=== PATIENT | male | born 1950 | race Caucasian/White ===

== ENCOUNTER 2016-12-19 07:44 | Outpatient (CLI) | payer MEDICARE | END 2016-12-19 07:45 | disposition home or self-care (01) | DX: E78.5 Hyperlipidemia, unspecified (principal); I10 Essential (primary) hypertension; D53.9 Nutritional anemia, unspecified ==

== ENCOUNTER 2017-05-29 09:04 | Outpatient (CLI) | payer MEDICARE, MEDICAID ==
[2017-05-29 14:19] LABS: HEMOGLOBIN A1C 0.6 g/dL
[2017-05-29 14:24] LABS: CALCIUM 9.2 mg/dL (8.5-10.3); CREATININE 0.8 mg/dL (0.6-1.2); POTASSIUM 4.4 mmol/L (3.5-5.0)
== END 2017-05-29 09:05 | disposition home or self-care (01) ==
LOC: LAB.N 09:04
PROVIDERS: ATTEND Family Medicine
DX: R73.01 Impaired fasting glucose (principal)
CPT/HCPCS: 36415; 80048; 83036

== ENCOUNTER 2017-12-28 08:00 | Outpatient (CLI) | payer MEDICARE, MEDICAID ==
[2017-12-28 12:30] LABS: BASOPHILS # (AUTO) 0.1 10^3/uL (0.0-0.1); BASOPHILS % (AUTO) 0.7 %; EOSINOPHILS # (AUTO) 0.4 10^3/uL (0.0-0.7); EOSINOPHILS % (AUTO) 4.1 %; HGB - HEMOGLOBIN 16.4 g/dL (14.0-18.0); LYMPHOCYTES # (AUTO) 2.7 10^3/uL (1.5-3.5); LYMPHOCYTES % (AUTO) 30.1 %; MEAN CORPUSCULAR HEMOGLOBIN 35.2 pg (27.0-31.0); MEAN CORPUSCULAR HGB CONC 34.8 g/dL (32.0-36.0); MEAN CORPUSCULAR VOLUME 101.1 fL (80.0-94.0); MEAN PLATELET VOLUME 10.2 fL (7.4-11.4); NEUTROPHILS # (AUTO) 4.9 10^3/uL (1.5-6.6); NEUTROPHILS % (AUTO) 54.1 %; PLT - PLATELET COUNT 203 10^3/uL (130-450); RED BLOOD COUNT 4.67 10^6/uL (4.70-6.10); RED CELL DISTRIBUTION WIDTH 12.9 % (12.0-15.0); WHITE BLOOD COUNT 9.1 x10^3/uL (4.8-10.8)
[2017-12-28 12:41] LABS: ALBUMIN 4.1 g/dL (3.2-5.5); ALBUMIN/GLOBULIN RATIO 1.2 (1.0-2.2); ALKALINE PHOSPHATASE 56 IU/L (42-121); ALT ALANINE AMINOTRANSFERASE 29 IU/L (10-60); AST ASPARTATE AMINOTRANSFERASE 33 IU/L (10-42); BILIRUBIN,TOTAL 1.5 mg/dL (0.2-1.0); BUN - BLOOD UREA NITROGEN 13 mg/dL (6-20); CARBON DIOXIDE - CO2 27 mmol/L (21-32); CHLORIDE 100 mmol/L (101-111); CHOL/HDL RATIO 6.7 (<5.0); CHOLESTEROL 175 mg/dL; GFR - MDRD 74 (>89); GLUCOSE 109 mg/dL (70-100); HDL CHOLESTEROL 26 mg/dL; LDL CHOLESTEROL,CALCULATED 96 mg/dL; LDL/HDL RATIO 3.7 (<3.6); SODIUM 136 mmol/L (135-145); TOTAL PROTEIN 7.5 g/dL (6.7-8.2); VLDL CHOLESTEROL 53 mg/dL
[2017-12-28 12:47] LABS: HB2 TOTAL 18.1 g/dL; HEMOGLOBIN A1C 0.68 g/dL; HEMOGLOBIN A1C % 5.6 % (4.6-6.2)
== END 2017-12-28 08:01 | disposition home or self-care (01) ==
LOC: LAB.N 08:00
PROVIDERS: ATTEND Family Medicine
DX: R73.01 Impaired fasting glucose (principal); E78.5 Hyperlipidemia, unspecified; I10 Essential (primary) hypertension
CPT/HCPCS: 36415; 80053; 80061; 83036; 83721; 85025

== ENCOUNTER 2018-07-16 10:42 | Outpatient (CLI) | payer MEDICARE, MEDICAID ==
[2018-07-16 19:25] LABS: CALCIUM 9.6 mg/dL (8.5-10.3)
[2018-07-16 19:50] LABS: HB2 TOTAL 17.5 g/dL; HEMOGLOBIN A1C 0.6 g/dL; HEMOGLOBIN A1C % 5.3 % (4.6-6.2)
== END 2018-07-16 10:43 | disposition home or self-care (01) ==
LOC: LAB.N 10:42
PROVIDERS: ATTEND Family Medicine
DX: R73.9 Hyperglycemia, unspecified (principal); E55.9 Vitamin D deficiency, unspecified; I10 Essential (primary) hypertension
CPT/HCPCS: 36415; 80048; 82306; 83036

== ENCOUNTER 2018-10-14 14:39 | Outpatient (CLI) | payer MEDICARE, MEDICAID | END 2018-10-14 14:40 | disposition EMS.NT | LOC: EMS 14:39 | PROVIDERS: ATTEND Surgery | DX: R10.30 Lower abdominal pain, unspecified (principal); V49.50XA Passenger injured in collision with unspecified motor vehicles in traffic accident, initial encounter; Y92.413 State road as the place of occurrence of the external cause ==

== ENCOUNTER 2018-10-27 16:41 | Emergency (ER) | payer OTHER, MEDICARE, MEDICAID ==
[2018-10-27] MEDS ORDERED: SODIUM CHLORIDE 0.9% 1,000 ML IV ONE (17:06)
[2018-10-27] MEDS ORDERED: fentaNYL 100 MCG/2 ML VIAL IVP STA (17:06)
[2018-10-27] MEDS ORDERED: ONDANSETRON 4 MG/2 ML VIAL IVP STA (17:06)
[2018-10-27] MEDS ORDERED: IOVERSOL 320 100 ML VIAL IVP ONE ×2 (17:25→20:25)
[2018-10-27 17:27] LABS: BASOPHILS # (AUTO) 0.1 10^3/uL (0.0-0.1); EOSINOPHILS # (AUTO) 0.3 10^3/uL (0.0-0.7); EOSINOPHILS % (AUTO) 2.8 %; HGB - HEMOGLOBIN 16.1 g/dL (14.0-18.0); LYMPHOCYTES # (AUTO) 2.5 10^3/uL (1.5-3.5); LYMPHOCYTES % (AUTO) 21.5 %; MEAN CORPUSCULAR HEMOGLOBIN 35.1 pg (27.0-31.0); MEAN CORPUSCULAR HGB CONC 33.7 g/dL (32.0-36.0); MEAN PLATELET VOLUME 9.3 fL (7.4-11.4); MONOCYTES # (AUTO) 1.2 10^3/uL (0.0-1.0); MONOCYTES % (AUTO) 10.5 %; NEUTROPHILS # (AUTO) 7.5 10^3/uL (1.5-6.6); NEUTROPHILS % (AUTO) 64.2 %; PLT - PLATELET COUNT 234 10^3/uL (130-450); RED BLOOD COUNT 4.59 10^6/uL (4.70-6.10); RED CELL DISTRIBUTION WIDTH 12.6 % (12.0-15.0); WHITE BLOOD COUNT 11.7 x10^3/uL (4.8-10.8)
[2018-10-27 17:38] LABS: INR 1.1 (0.8-1.2); PT - PROTHROMBIN TIME 12.9 secs (9.9-12.6)
[2018-10-27 17:38] LABS: BILIRUBIN,URINE NEGATIVE (NEGATIVE); GLUCOSE, URINE (UA) NEGATIVE (NEGATIVE); KETONES,URINE (UA) TRACE mg/dL (NEGATIVE); LEUKOCYTE ESTERASE, URINE NEGATIVE (NEGATIVE); NITRITE,URINE NEGATIVE (NEGATIVE); OCCULT BLOOD,URINE NEGATIVE (NEGATIVE); PROTEIN,URINE 30 mg/dL (NEGATIVE); UROBILINOGEN,URINE 1 (NORMAL) E.U./dL (NORMAL)
[2018-10-27 17:43] LABS: CLARITY,URINE CLEAR (CLEAR)
[2018-10-27 17:49] LABS: ALBUMIN/GLOBULIN RATIO 1.2 (1.0-2.2); BILIRUBIN,TOTAL 0.9 mg/dL (0.2-1.0); CALCIUM 9.2 mg/dL (8.5-10.3); CREATININE 0.9 mg/dL (0.6-1.2); TOTAL PROTEIN 7.4 g/dL (6.7-8.2)
[2018-10-27 18:02] LABS: AMORPHOUS SEDIMENT,UR Rare /LPF; BACTERIA,URINE None Seen /HPF (None Seen); RBC,URINE None Seen /HPF (0-5); SQUAMOUS EPITHELIAL CELL,UR NONE SEEN (<= Few)
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
--- NOTE | 2018-10-27 19:27 | CT Report ---
Reason: back pain Procedure Date: 10/27/2018 Accession Number: [id number] / [id number] Procedure: CT - Thoracic Spine W/O CPT Code: FULL RESULT: EXAM: CT THORACIC SPINE WITHOUT CONTRAST EXAM DATE: 10/27/2018 06:58 PM. CLINICAL HISTORY: Back pain. COMPARISONS: None. TECHNIQUE: Axial, coronal, and sagittal reconstructions of the thoracic spine from helical trauma data set. In accordance with CT protocol optimization, one or more of the following dose reduction techniques were utilized for this exam: automated exposure control, adjustment of mA and/or KV based on patient size, or use of iterative reconstructive technique. FINDINGS: Alignment: No scoliosis or spondylolisthesis. Bones: No fracture or bone lesion. Disk Levels/Facets: Disk height appears preserved. Facet joints appear normal in alignment. No bony central spinal canal stenosis. No paravertebral hematoma. Musculature: Normal. No fatty atrophy. Other: The visualized lungs, mediastinum, and abdominal cavity are unremarkable. IMPRESSION: No fracture or subluxation of thoracic spine. RADIA
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
--- NOTE | 2018-10-27 19:32 | CT Report ---
Reason: back pain Procedure Date: 10/27/2018 Accession Number: [id number] / [id number] Procedure: CT - Lumbar Spine W/O CPT Code: FULL RESULT: EXAM: CT LUMBAR SPINE WITHOUT CONTRAST EXAM DATE: 10/27/2018 06:57 PM. CLINICAL HISTORY: Back pain. COMPARISONS: None. TECHNIQUE: Axial, coronal, and sagittal reconstructions of lumbar spine from helical trauma data set.. In accordance with CT protocol optimization, one or more of the following dose reduction techniques were utilized for this exam: automated exposure control, adjustment of mA and/or KV based on patient size, or use of iterative reconstructive technique. FINDINGS: Alignment: No scoliosis or spondylolisthesis. Bones: Five [id number] lumbar vertebral bodies are present. No acute fracture is demonstrated. There is bilateral anterior ankylosis of the sacroiliac joints. Disk Levels/Facets: There is mild disk height loss at all levels of the lumbar spine. There is degenerative disease with intradiskal gas at L2-L3, L3-L4, and L4-L5. Musculature: Normal. No fatty atrophy. Other: There are vascular calcifications without abdominal aortic aneurysm. IMPRESSION: Degenerative disk disease without fracture or subluxation. RADIA
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
[2018-10-27 21:05] VITALS: BP 141/67
== END 2018-10-27 21:05 | disposition home or self-care (01) ==
LOC: ED 16:41
DX: S29.8XXA Other specified injuries of thorax, initial encounter (principal); S20.211A Contusion of right front wall of thorax, initial encounter; R10.84 Generalized abdominal pain; S30.1XXA Contusion of abdominal wall, initial encounter; M25.561 Pain in right knee; S29.9XXA Unspecified injury of thorax, initial encounter; M54.9 Dorsalgia, unspecified; V89.2XXA Person injured in unspecified motor-vehicle accident, traffic, initial encounter; Y92.410 Unspecified street and highway as the place of occurrence of the external cause; I10 Essential (primary) hypertension
CPT/HCPCS: 36415; 71260; 72128; 72131; 73562; 74177; 80053; 81001; 82553; 83690; 84484; 85025; 85610; 93005; 96361; 96374; 99284; Q9967; 81003; 87086

== ENCOUNTER 2021-02-25 | Outpatient (CLI) | payer MEDICARE | END 2021-02-25 18:18 | disposition critical access hospital (66) | DX: M54.5 Low back pain (principal) | CPT/HCPCS: A0425; A0429 ==

== ENCOUNTER 2021-02-25 18:38 | Emergency (ER) | payer MEDICAID, MEDICARE ==
[2021-02-25] MEDS ORDERED: MORPHINE 2 MG/ML CARPUJECT IVP STA ×2 (18:54→22:39)
[2021-02-25] MEDS ORDERED: SODIUM CHLORIDE 0.9% 1,000 ML IV STA ×3 (18:54→22:39)
[2021-02-25 19:04] LABS: BASOPHILS # (AUTO) 0.1 10^3/uL (0.0-0.1); BASOPHILS % (AUTO) 0.8 %; EOSINOPHILS # (AUTO) 0.3 10^3/uL (0.0-0.7); EOSINOPHILS % (AUTO) 3.3 %; HCT - HEMATOCRIT 41.4 % (42.0-52.0); HGB - HEMOGLOBIN 14.1 g/dL (14.0-18.0); LYMPHOCYTES # (AUTO) 1.8 10^3/uL (1.5-3.5); LYMPHOCYTES % (AUTO) 17.4 %; MEAN CORPUSCULAR HEMOGLOBIN 34.9 pg (27.0-31.0); MEAN CORPUSCULAR HGB CONC 34.1 g/dL (32.0-36.0); MEAN CORPUSCULAR VOLUME 102.5 fL (80.0-94.0); MEAN PLATELET VOLUME 10.6 fL (7.4-11.4); MONOCYTES # (AUTO) 1.1 10^3/uL (0.0-1.0); NEUTROPHILS # (AUTO) 6.7 10^3/uL (1.5-6.6); NEUTROPHILS % (AUTO) 66.6 %; PLT - PLATELET COUNT 327 10^3/uL (130-450); RED BLOOD COUNT 4.04 10^6/uL (4.70-6.10); RED CELL DISTRIBUTION WIDTH 12.8 % (12.0-15.0); WHITE BLOOD COUNT 10.1 x10^3/uL (4.8-10.8)
--- NOTE | 2021-02-25 19:07 | ED Physician Documentation ---
History of Present Illness - Stated complaint Stated Complaint: GLF - Chief complaint Chief Complaint: Back Pain - History obtained from History obtained from: Patient, EMS - History of Present Illness Timing: How many days ago (8) Pain level max: 8 Pain level now: 1 - Additonal information Additional information: Patient is a 70-year-old male who lives at home. He states that 8 days ago he stumbled, fell backwards missing a chair and landing on his right buttocks. He states that since that time he has had low back pain, right knee pain, right hip pain, right rib pain. He has been unable to get up off of the floor. His girlfriend has been taking care of him. She has been feeding him on the floor, he has been urinating into a bottle and defecating into a cup. Finally they called EMS to bring him in to be evaluated. Patient states his pain is a 1 out of 10 if he is not moving. Increases to a 10 out of 10 when trying to stand and walk. No loss of bowel or bladder control. Occasionally the pain radiates down the bilateral lower extremities. Has not taken anything for pain. Review of Systems Ten Systems: 10 systems reviewed and negative Constitutional: denies: Fever, Chills Eyes: denies: Decreased vision Ears: denies: Ear pain, Drainage/discharge Nose: denies: Rhinorrhea / runny nose, Congestion Throat: denies: Sore throat Cardiac: denies: Chest pain / pressure, Palpitations Respiratory: denies: Dyspnea, Cough GI: denies: Abdominal Pain, Nausea, Vomiting, Diarrhea Skin: denies: Rash Musculoskeletal: denies: Neck pain Neurologic: denies: Headache PD PAST MEDICAL HISTORY - Past Medical History Cardiovascular: Hypertension Psych: Depression, Anxiety - Past Surgical History Past Surgical History: Yes Ortho: Arthroscopic surgery - Present Medications Home Medications: Ambulatory Orders Medication Instructions Recorded Confirmed Citalopram [CeleXA] 20 mg PO DAILY 01/12/14 01/12/14 Losartan [Cozaar] 25 mg PO DAILY 01/12/14 01/12/14 Propranolol [Inderal] 20 mg PO BID 01/12/14 01/12/14 busPIRone [Buspar] 10 mg PO BID 01/12/14 01/12/14 - Allergies Allergies/Adverse Reactions: Allergies Allergy/AdvReac Type Severity Reaction Status Date / Time No Known Drug Allergies Allergy Verified 10/27/18 17:20 - Social History Does the pt smoke?: No Smoking Status: Never smoker Does the pt drink ETOH?: Yes Does the pt have substance abuse?: No - Immunizations Immunizations are current?: Yes - POLST Patient has POLST: No PD ED PE NORMAL - Vitals Vital signs reviewed: Yes - General General: Alert and oriented X 3, No acute distress, Well developed/nourished - HEENT HEENT: PERRL, Other (dry lips) - Neck Neck: Supple, no meningeal sign - Cardiac Cardiac: RRR, Strong equal pulses - Respiratory Respiratory: No respiratory distress, Clear bilaterally - Abdomen Abdomen: Soft, Non tender, Non distended - Back Back: No spinal TTP (No midline tenderness over the cervical, thoracic or lumbar spines.) - Derm Derm: Warm and dry, Other (Ecchymosis to the right ribs, right knee and right hip.) - Extremities Extremities: Other (Tender to palpation over the entirety of the right leg. No ecchymosis. No swelling. Normal examination of the other 4 extremities. no joint effusion, FROM of all joints with ligaments intact. Patient is also tender to palpation over the right lower ribs. No crepitus. Mild bruising ) - Neuro Neuro: Alert and oriented X 3, director of business operations 2-12 intact, No motor deficit, No sensory deficit, Normal speech, Other (Normal bilateral lower extremity patellar and ankle jerk reflexes. Normal great toe extension bilaterally. no saddle anesthesia) - Psych Psych: Normal mood, Normal affect Results - Vitals Vitals: Vital Signs - 24 hr 02/25/21 02/25/21 02/25/21 18:38 18:55 19:57 Temperature 35.8 C L Heart Rate 62 98 66 Respiratory 18 16 18 Rate Blood Pressure 114/57 L 100/87 H 132/87 H O2 Saturation 99 98 94 02/25/21 21:05 Temperature Heart Rate 68 Respiratory 18 Rate Blood Pressure 132/62 H O2 Saturation 95 Oxygen O2 Source Room air - Labs Labs: Laboratory Tests 02/25/21 02/25/21 02/25/21 19:00 19:00 21:20 WBC 10.1 RBC 4.04 L Hgb 14.1 Hct 41.4 L MCV 102.5 H MCH 34.9 H MCHC 34.1 RDW 12.8 Plt Count 327 MPV 10.6 Neut # (Auto) 6.7 H Lymph # (Auto) 1.8 [place] # (Auto) 1.1 H Eos # (Auto) 0.3 Baso # (Auto) 0.1 Absolute Nucleated RBC 0.00 Nucleated RBC % 0.0 Sodium 131 L Potassium 4.7 Chloride 95 L Carbon Dioxide 21 Anion Gap 15.0 H BUN 26 H Creatinine 1.3 H Estimated GFR (MDRD) 54 L Glucose 92 Calcium 9.4 Total Bilirubin 1.5 H AST 60 H ALT 55 Alkaline Phosphatase 64 Total Creatine Kinase 253 Total Protein 7.7 Albumin 4.1 Globulin 3.6 Albumin/Globulin Ratio 1.1 Urine Color YELLOW Urine Clarity CLEAR Urine pH 6.0 Ur Specific [place] 1.010 Urine Protein NEGATIVE Urine Glucose (UA) NEGATIVE Urine Ketones TRACE Urine Occult Blood NEGATIVE Urine Nitrite NEGATIVE Urine Bilirubin NEGATIVE Urine Urobilinogen 1 (NORMAL) Ur Leukocyte Esterase NEGATIVE Ur Microscopic Review NOT INDICATED Urine Culture Comments NOT INDICATED - Rads (name of study) CT head Radiology: Prelim report reviewed, EMP read contemporaneously, See rad report (No acute abnormality) CT cspine Radiology: Prelim report reviewed, EMP read contemporaneously, See rad report (No acute abnormality) ct chest Radiology: Prelim report reviewed, EMP read contemporaneously, See rad report (No acute abnormality) CT abd/pelvis Radiology: Prelim report reviewed, EMP read contemporaneously, See rad report (No acute abnormality) R femur xray Radiology: Prelim report reviewed, EMP read contemporaneously, See rad report (No acute abnormality) R tib fib xray Radiology: Prelim report reviewed, EMP read contemporaneously, See rad report PD MEDICAL DECISION MAKING - ED course Complexity details: reviewed results, re-evaluated patient, considered differential, d/w patient ED course: No acute findings on CT scan laboratory testing or x-rays. Patient is dehydrated and feels better after IV fluids. Pain well controlled, but patient feels too weak to walk even with a walker. No indication for admission at this time, we will observe him overnight and see how he progresses in the morning. May need a social work consult in the morning as well. If the patient is able to ambulate with a walker tonight I anticipate that he could be discharged home with pain medication. Patient signed out to the [facility] emergency department physician. This document was made in part using voice recognition software. While efforts are made to proofread this document, sound alike and grammatical errors may occur. Departure - Departure Clinical Impression: Fall Qualifiers: Encounter type: initial encounter Qualified Code(s): W19.XXXA - Unspecified fall, initial encounter Back pain Qualifiers: Back pain location: low back pain Chronicity: acute Back pain laterality: unspecified Sciatica presence: without sciatica Qualified Code(s): M54.5 - Low back pain Condition: Good
[2021-02-25 19:16] LABS: ALBUMIN 4.1 g/dL (3.2-5.5); ALBUMIN/GLOBULIN RATIO 1.1 (1.0-2.2); BILIRUBIN,TOTAL 1.5 mg/dL (0.2-1.0); CALCIUM 9.4 mg/dL (8.5-10.3); CREATININE 1.3 mg/dL (0.6-1.2); POTASSIUM 4.7 mmol/L (3.5-5.0); TOTAL PROTEIN 7.7 g/dL (6.7-8.2)
--- NOTE | 2021-02-25 19:56 | XRAY Report ---
PROCEDURE: Femur 2V RT INDICATIONS: fall, R leg pain TECHNIQUE: 5 views of the femur were acquired. COMPARISON: None. FINDINGS: Bones: No fractures or dislocations. Right hip and right knee joint osteoarthritic changes are seen . No evidence of avascular necrosis of femoral head. No suspicious bony lesions. Soft tissues: No suspicious soft tissue calcifications or masses. IMPRESSION: No acute right femoral fracture or dislocation. Right hip and right knee joint osteoarthritis. Reviewed by: Joel Hummel MD on 02/25/2021 7:55 PM PDT Approved by: Joel Hummel MD on 02/25/2021 7:55 PM PDT Station ID: [id number]
--- NOTE | 2021-02-25 19:57 | XRAY Report ---
PROCEDURE: Tib/Fib RT INDICATIONS: fall, R leg pain TECHNIQUE: 2 views of the tibia and fibula were acquired. COMPARISON: Right knee radiograph dated 10/27/2018 FINDINGS: Bones: No fractures or dislocations. No suspicious bony lesions. Soft tissues: No suspicious soft tissue calcifications or masses. IMPRESSION: No acute right lower leg fracture or dislocation. Intact ankle mortise. Reviewed by: Joel Hummel MD on 02/25/2021 7:55 PM PDT Approved by: Joel Hummel MD on 02/25/2021 7:55 PM PDT Station ID: [id number]
[2021-02-25] MEDS ORDERED: IOPAMIDOL-300 100 ML VIAL ONE (20:05)
--- NOTE | 2021-02-25 21:08 | CT Report ---
PROCEDURE: HEAD WO INDICATIONS: fall, 8 days ago, on floor x8 day, headache TECHNIQUE: Noncontrast 4.5 mm thick angled axial sections acquired from the foramen magnum to the vertex. For r adiation dose reduction, the following was used: automated exposure control, adjustment of mA and/or kV according to patient size. COMPARISON: None FINDINGS: Image quality: Excellent. CSF spaces: Basal cisterns are patent. No extra-axial fluid collections. The ventricles are symmet luna in size and shape. Brain: No intracranial bleeds or masses. There is cerebral volume loss for age, with resultant vent ricular and sulcal prominence. There are periventricular and deep white matter chronic small vessel ischemic changes. There is intracranial internal carotid artery atherosclerosis. Skull and face: Calvarium and visualized facial bones appear intact, without suspicious lesions. Sinuses: Visualized sinuses and mastoids are clear. IMPRESSION: 1. No CT evidence of acute intracranial pathology. 2. No acute skull fracture. 3. Age-appropriate atrophy and mild white matter chronic small vessel ischemic changes. Reviewed by: Joel Hummel MD on 02/25/2021 9:06 PM PDT Approved by: Joel Hummel MD on 02/25/2021 9:06 PM PDT Station ID: [id number]
--- NOTE | 2021-02-25 21:09 | CT Report ---
PROCEDURE: CERVICAL SPINE WO INDICATIONS: fall, 8 days ago, neck pain TECHNIQUE: Noncontrast 3 mm thick sections acquired from the skull base to the T4 level. Sagittal and coronal r eformats were then constructed. For radiation dose reduction, the following was used: automated exp osure control, adjustment of mA and/or kV according to patient size. COMPARISON: None. FINDINGS: Image quality: Excellent. Bones: No fractures or dislocations. There is straightening of normal cervical lordosis. Degenerativ e endplate changes and decreased intervertebral disc space are noted at C4-5 through C6-7 levels. Vis ualized superior ribs are intact. Soft tissues: Prevertebral soft tissues are normal in thickness. No paravertebral hematomas. No ap ical pneumothoraces. IMPRESSION: No acute cervical spine fracture or dislocation. Degenerative disc disease in mid to lower cervical spine. Reviewed by: Joel Hummel MD on 02/25/2021 9:08 PM PDT Approved by: Joel Hummel MD on 02/25/2021 9:08 PM PDT Station ID: [id number]
--- NOTE | 2021-02-25 21:13 | CT Report ---
PROCEDURE: CHEST W INDICATIONS: fall, 8 days ago, R sided pain CONTRAST: IV CONTRAST: Isovue 300 ml: 100 PO CONTRAST: *NO PO CONTRAST TECHNIQUE: After the administration of intravenous contrast, 5 mm thick sections acquired from the pulmonary api erin to the posterior costophrenic angles. 7 mm thick coronal MIP reformats were acquired. For radia tion dose reduction, the following was used: automated exposure control, adjustment of mA and/or kV according to patient size. COMPARISON: CT of chest dated 10/27/2018. FINDINGS: Image quality: Excellent. Lungs and pleura: No acute air space opacities. Scattered scarring/atelectasis in periphery of bilat eral lung aden are seen. No evidence of pulmonary laceration. Chronic lateral herniation of right l ower lobe through posterior lateral right eighth and ninth rib interspace is again seen, unchanged fr om 2018 study. No pleural effusions or pneumothorax. Central and peripheral airways are patent and n ormal in caliber. Mediastinum: Heart size is normal. No pericardial effusion. No mediastinal or hilar adenopathy by size criteria. Thoracic aorta and central pulmonary arteries are normal in size. Mild to moderate at herosclerotic calcifications are noted in coronary vessels and thoracic aorta. Esophagus is normal in caliber. No hiatal hernia. Bones and chest wall: No suspicious bony lesions. No vertebral body compression fractures. Degenera tive disc disease throughout the thoracic spine is seen. No axillary or supraclavicular adenopathy by size criteria. Thyroid gland is within normal limits. Abdomen: Visualized upper abdominal solid organs appear normal. Upper abdominal bowel loops are nor mal in caliber. IMPRESSION: 1. No pulmonary laceration. No pleural effusion or pneumothorax. No focal infiltrate. Airway is paten t. 2. Chronic posterior lateral right lower lobe herniation through posterior lateral right eighth and n inth rib interspace unchanged from prior study. 3. No mediastinal hematoma. No lymphadenopathy. No pericardial effusion. Mild to moderate amount of a therosclerotic disease. 4. No gross acute rib fracture. No compression fracture or spondylolisthesis in thoracic spine. Reviewed by: Joel Hummel MD on 02/25/2021 9:12 PM PDT Approved by: Joel Hummel MD on 02/25/2021 9:12 PM PDT Station ID: [id number]
--- NOTE | 2021-02-25 21:16 | CT Report ---
PROCEDURE: Abdomen/Pelvis W INDICATIONS: fall, 8 days ago, R sided pain CONTRAST: IV CONTRAST: Isovue 300 ml: 100 PO CONTRAST: *NO PO CONTRAST TECHNIQUE: After the administration of IV contrast, 5 mm thick sections acquired from the diaphragms to the symp hysis. 5 mm thick coronal and sagittal reformats were acquired. For radiation dose reduction, the f ollowing was used: automated exposure control, adjustment of mA and/or kV according to patient size. COMPARISON: 10/27/2018. FINDINGS: Image quality: Excellent. ABDOMEN: Lung bases: Bibasilar scarring/atelectasis is seen. Heart size is enlarged. Solid organs: Liver and spleen are normal in size and enhancement. Hepatic steatosis is seen. Gallbl adder is within normal limits. Biliary system is non dilated. Pancreas enhances normally. No adren al nodules. Kidneys demonstrate normal size and enhancement, without hydronephrosis. Peritoneum and bowel: Bowel loops demonstrate normal wall thickness and caliber. No free fluid or a ir. Extensive sigmoid diverticulosis is seen, no CT evidence of acute diverticulitis. Nodes and vessels: No retroperitoneal or mesenteric adenopathy by size criteria. Aorta and inferior vena cava are normal in size. Miscellaneous: No ventral hernias. PELVIS: Genitourinary: Bladder wall thickness is normal. Miscellaneous: No inguinal hernias or adenopathy. Bones: No suspicious bony lesions. No vertebral body compression fractures. IMPRESSION: 1. No acute solid organ injury within abdomen or pelvis. No free fluid or free air. 2. Colonic diverticulosis without evidence of acute diverticulitis. 3. Hepatic steatosis. Reviewed by: Joel Hummel MD on 02/25/2021 9:14 PM PDT Approved by: Joel Hummel MD on 02/25/2021 9:14 PM PDT Station ID: [id number]
[2021-02-25] MEDS ORDERED: IOPAMIDOL-300 100 ML VIAL IVP ONE (21:30)
[2021-02-25 21:35] LABS: BILIRUBIN,URINE NEGATIVE (NEGATIVE); CLARITY,URINE CLEAR (CLEAR); GLUCOSE, URINE (UA) NEGATIVE (NEGATIVE); KETONES,URINE (UA) TRACE mg/dL (NEGATIVE); LEUKOCYTE ESTERASE, URINE NEGATIVE (NEGATIVE); NITRITE,URINE NEGATIVE (NEGATIVE); OCCULT BLOOD,URINE NEGATIVE (NEGATIVE); PROTEIN,URINE NEGATIVE (NEGATIVE); UROBILINOGEN,URINE 1 (NORMAL) E.U./dL (NORMAL)
[2021-02-25] MEDS ORDERED: oxyCODONE 5 MG TABLET PO STA (21:37)
[2021-02-26 17:03] VITALS: BP 146/43
--- OUTSIDE RECORDS SUMMARY | 2021-02-27 03:17 | EXTERNAL MEDICAL SUMMARY RPT | Continuity of Care Document ---
:1950 Demographics Phone Unavailable Preferred Language Unknown Marital Status Unknown Adventist Affiliation Unknown Race Unknown Ethnic Group Unknown Author Organization [facility] Address [address] [place] [address] Phone Social History date description facility [id number]
== END 2021-02-26 18:12 | disposition home or self-care (01) ==
LOC: EDBD → EDUNIT# → ED 18:38
DX: M54.5 Low back pain (principal); S80.01XA Contusion of right knee, initial encounter; S70.01XA Contusion of right hip, initial encounter; S20.211A Contusion of right front wall of thorax, initial encounter; W01.0XXA Fall on same level from slipping, tripping and stumbling without subsequent striking against object, initial encounter; Y92.009 Unspecified place in unspecified non-institutional (private) residence as the place of occurrence of the external cause; E86.0 Dehydration; R53.1 Weakness; I10 Essential (primary) hypertension; E66.01 Morbid (severe) obesity due to excess calories; Z68.35 Body mass index [BMI] 35.0-35.9, adult; M50.321 Other cervical disc degeneration at C4-C5 level; M17.11 Unilateral primary osteoarthritis, right knee; M16.11 Unilateral primary osteoarthritis, right hip
CPT/HCPCS: 36415; 70450; 71260; 72125; 73552; 73590; 74177; 80053; 81003; 82550; 85025; 96361; 96374; 96376; 99284; A9270; Q9967; 81001; 87086

== ENCOUNTER 2021-02-26 | Outpatient (CLI) | payer MEDICARE | END 2021-02-26 18:11 | disposition home or self-care (01) | CPT/HCPCS: A0425; A0428 ==

== ENCOUNTER 2021-05-16 10:46 | Outpatient (CLI) | payer MEDICARE ==
[2021-05-16 18:06] LABS: BASOPHILS # (AUTO) 0.1 10^3/uL (0.0-0.1); BASOPHILS % (AUTO) 0.6 %; EOSINOPHILS # (AUTO) 0.2 10^3/uL (0.0-0.7); HCT - HEMATOCRIT 40.8 % (42.0-52.0); HGB - HEMOGLOBIN 13.4 g/dL (14.0-18.0); LYMPHOCYTES # (AUTO) 1.9 10^3/uL (1.5-3.5); MEAN CORPUSCULAR HEMOGLOBIN 33.4 pg (27.0-31.0); MEAN CORPUSCULAR HGB CONC 32.8 g/dL (32.0-36.0); MEAN CORPUSCULAR VOLUME 101.7 fL (80.0-94.0); MEAN PLATELET VOLUME 11.3 fL (7.4-11.4); MONOCYTES # (AUTO) 0.8 10^3/uL (0.0-1.0); MONOCYTES % (AUTO) 8.4 %; NEUTROPHILS # (AUTO) 6.4 10^3/uL (1.5-6.6); NEUTROPHILS % (AUTO) 68.3 %; PLT - PLATELET COUNT 280 10^3/uL (130-450); RED BLOOD COUNT 4.01 10^6/uL (4.70-6.10); RED CELL DISTRIBUTION WIDTH 12.5 % (12.0-15.0); WHITE BLOOD COUNT 9.4 x10^3/uL (4.8-10.8)
[2021-05-16 18:29] LABS: % IRON SATURATION 51 % (20-50); ALBUMIN/GLOBULIN RATIO 1.1 (1.0-2.2); ALKALINE PHOSPHATASE 60 IU/L (42-121); ALT ALANINE AMINOTRANSFERASE 30 IU/L (10-60); AST ASPARTATE AMINOTRANSFERASE 31 IU/L (10-42); BILIRUBIN,TOTAL 1.4 mg/dL (0.2-1.0); BUN - BLOOD UREA NITROGEN 19 mg/dL (6-20); CALCIUM 9.6 mg/dL (8.5-10.3); CARBON DIOXIDE - CO2 26 mmol/L (21-32); CHLORIDE 94 mmol/L (101-111); CHOL/HDL RATIO 2.6 (<5.0); CHOLESTEROL 147 mg/dL; CREATININE 1.1 mg/dL (0.6-1.2); GFR - MDRD 66 (>89); GLUCOSE 108 mg/dL (70-100); HDL CHOLESTEROL 56 mg/dL; IRON 185 ug/dL (45-182); LDL CHOLESTEROL,CALCULATED 65 mg/dL; LDL/HDL RATIO 1.2 (<3.6); SODIUM 131 mmol/L (135-145); TOTAL IRON BINDING CAPACITY 363 ug/dL (250-450); TOTAL PROTEIN 7.5 g/dL (6.7-8.2); TRANSFERRIN 259 mg/dL (180-329); TRIGLYCERIDES 130 mg/dL; URIC ACID 6.3 mg/dL (2.6-7.2); VLDL CHOLESTEROL 26 mg/dL
[2021-05-16 18:40] LABS: FERRITIN 158.9 ng/mL (23.9-336.2)
[2021-05-16 21:13] LABS: ESTIMATED AVERAGE GLUCOSE 111 mg/dL (70-100); HEMOGLOBIN A1c% 5.5 % (4.27-6.07)
== END 2021-05-16 10:47 | disposition home or self-care (01) ==
LOC: LAB.N 10:46
PROVIDERS: ATTEND Family Medicine
DX: I10 Essential (primary) hypertension (principal); E78.5 Hyperlipidemia, unspecified; D53.9 Nutritional anemia, unspecified; R73.01 Impaired fasting glucose; M10.9 Gout, unspecified
CPT/HCPCS: 36415; 80053; 80061; 82607; 82728; 83036; 83540; 83721; 84466; 84550; 85025

== ENCOUNTER 2022-01-10 11:01 | Day surgery (SDC) | payer MEDICARE ==
[~2022-01-10 11:01] MED LIST: PROPOFOL 500 MG/50 ML 500 MG/50 ML VIAL ONE
[2022-01-10] MEDS ORDERED: LACTATED RINGERS 1,000 ML IV ONE ×2 (11:10→12:53)
--- NOTE | 2022-01-10 11:54 | ANESTHESIA ---
Pre-Anesthesia VS, & Labs - Diagnosis screening colonoscopy - Procedure colonoscopy Vital Signs: Temp Pulse Resp BP Pulse Ox 36 C L 55 L 16 132/75 H 98 01/10/22 11:21 01/10/22 11:21 01/10/22 11:21 01/10/22 11:21 01/10/22 11:21 Height: 5 ft 10 in Weight (kg): 129 kg Body Mass Index: 40.8 BMI Classification: Morbidly Obese - NPO >8 hours Home Medications and Allergies Home Medications: Ambulatory Orders Atorvastatin Calcium 40 mg PO DAILY 01/10/22 Clopidogrel [Plavix] 75 mg PO DAILY 01/10/22 Metoprolol Succinate [Toprol Xl] 25 mg PO ONCE 01/10/22 Oxybutynin [Ditropan] 5 mg PO BID 01/10/22 allopurinoL [Allopurinol] 300 mg PO DAILY 01/10/22 Citalopram [CeleXA] 40 mg PO DAILY 01/12/14 Losartan [Cozaar] 50 mg PO DAILY 01/12/14 busPIRone [Buspar] 7.5 mg PO BID 01/12/14 Atorvastatin Calcium 40 mg PO DAILY 01/10/22 Clopidogrel [Plavix] 75 mg PO DAILY 01/10/22 Metoprolol Succinate [Toprol Xl] 25 mg PO ONCE 01/10/22 Oxybutynin [Ditropan] 5 mg PO BID 01/10/22 allopurinoL [Allopurinol] 300 mg PO DAILY 01/10/22 Allergies/Adverse Reactions: Allergies Allergy/AdvReac Type Severity Reaction Status Date / Time No Known Drug Allergies Allergy Verified 10/27/18 17:20 Anes History & Medical History - Anesthetic History Anesthesia Complications: reports: No previous complications - Medical History Cardiovascular: reports: Hypertension, High cholesterol Pulmonary: reports: Other (chest trauma, rib fractures 5 yrs ago, occasional SOB) Gastrointestinal: reports: None Urinary: reports: Benign prostate hypertrophy Neuro: reports: CVA Musculoskeletal: reports: Gout, Chronic back pain Endocrine/Autoimmune: reports: None Skin: reports: None Smoking Status: Never smoker History of Cancer?: No - Surgical History Cardiothoracic: reports: Vascular surgery Orthopedic: reports: Arthroscopic surgery Exam General: Alert, Oriented x3 Dental: WNL Mallampati classification: II Respiratory: Lungs clear Cardiovascular: Regular rate Plan Anesthesia Type: Total IV Consent for Procedure(s) Verified and Reviewed: Yes Code Status: Attempt Resuscitation ASA classification: 3-Severe systemic disease Is this case an emergency?: No
[2022-01-10] MEDS ORDERED: PROPOFOL 200 MG/20 ML VIAL IVP ONE (12:52)
--- NOTE | 2022-01-10 13:41 | ANESTHESIA POST OP EVALUATION ---
Anesthesia Post Eval - Post Anesthesia Eval Vitals: Last Vital Signs Temp 36.6 C 01/10/22 12:50 Pulse 63 01/10/22 13:02 Resp 22 01/10/22 13:02 BP 122/49 L 01/10/22 13:02 Pulse Ox 95 01/10/22 13:02 CV Function Including HR & BP: Stable Pain Control: Satisfactory Nausea & Vomiting: Negative Mental Status: Baseline Respiratory Status: Airway Patent Hydration Status: Satisfactory Anesthesia Complications: None
[2022-01-10 13:47] VITALS: BP 125/74
== END 2022-01-10 11:02 | disposition home or self-care (01) ==
LOC: SDS 11:01
PROVIDERS: ATTEND Surgery
DX: Z12.11 Encounter for screening for malignant neoplasm of colon (principal); K57.30 Diverticulosis of large intestine without perforation or abscess without bleeding; F17.290 Nicotine dependence, other tobacco product, uncomplicated; I10 Essential (primary) hypertension; E66.01 Morbid (severe) obesity due to excess calories; Z68.41 Body mass index [BMI] 40.0-44.9, adult; Z79.02 Long term (current) use of antithrombotics/antiplatelets; Z79.52 Long term (current) use of systemic steroids; Z79.899 Other long term (current) drug therapy
CPT/HCPCS: G0121; J7120

== ENCOUNTER 2022-03-07 14:11 | Outpatient (CLI) | payer MEDICARE ==
[2022-03-07 17:49] LABS: BASOPHILS # (AUTO) 0.1 10^3/uL (0.0-0.1); BASOPHILS % (AUTO) 0.8 %; EOSINOPHILS # (AUTO) 0.3 10^3/uL (0.0-0.7); EOSINOPHILS % (AUTO) 3.4 %; HCT - HEMATOCRIT 43.8 % (42.0-52.0); HGB - HEMOGLOBIN 14.6 g/dL (14.0-18.0); LYMPHOCYTES # (AUTO) 1.8 10^3/uL (1.5-3.5); MEAN CORPUSCULAR HEMOGLOBIN 34.7 pg (27.0-31.0); MEAN CORPUSCULAR HGB CONC 33.3 g/dL (32.0-36.0); MEAN PLATELET VOLUME 11.2 fL (7.4-11.4); MONOCYTES % (AUTO) 11.7 %; NEUTROPHILS # (AUTO) 5.6 10^3/uL (1.5-6.6); NEUTROPHILS % (AUTO) 63.6 %; PLT - PLATELET COUNT 261 10^3/uL (130-450); RED BLOOD COUNT 4.21 10^6/uL (4.70-6.10); RED CELL DISTRIBUTION WIDTH 13.5 % (12.0-15.0); WHITE BLOOD COUNT 8.8 x10^3/uL (4.8-10.8)
[2022-03-07 18:13] LABS: ALBUMIN 3.9 g/dL (3.2-5.5); ALBUMIN/GLOBULIN RATIO 1.1 (1.0-2.2); ALKALINE PHOSPHATASE 43 IU/L (42-121); ALT ALANINE AMINOTRANSFERASE 26 IU/L (10-60); AST ASPARTATE AMINOTRANSFERASE 30 IU/L (10-42); BILIRUBIN,TOTAL 1.4 mg/dL (0.2-1.0); BUN - BLOOD UREA NITROGEN 24 mg/dL (6-20); CARBON DIOXIDE - CO2 23 mmol/L (21-32); CHLORIDE 94 mmol/L (101-111); CHOL/HDL RATIO 2.4 (<5.0); CHOLESTEROL 116 mg/dL; CREATININE 1.1 mg/dL (0.6-1.2); GFR - MDRD 66 (>89); GLUCOSE 110 mg/dL (70-100); HDL CHOLESTEROL 49 mg/dL; LDL CHOLESTEROL,CALCULATED 39 mg/dL; LDL/HDL RATIO 0.8 (<3.6); POTASSIUM 4.8 mmol/L (3.5-5.0); SODIUM 129 mmol/L (135-145); TOTAL PROTEIN 7.4 g/dL (6.7-8.2); TRIGLYCERIDES 140 mg/dL; URIC ACID 3.6 mg/dL (2.6-7.2); VLDL CHOLESTEROL 28 mg/dL
== END 2022-03-07 14:12 | disposition home or self-care (01) ==
LOC: LAB.N 14:11
PROVIDERS: ATTEND Family Medicine
DX: I10 Essential (primary) hypertension (principal); R73.01 Impaired fasting glucose; M10.9 Gout, unspecified
CPT/HCPCS: 36415; 80053; 80061; 81599; 83036; 83721; 84550; 85025

== ENCOUNTER 2022-06-05 13:48 | Outpatient (CLI) | payer MEDICARE ==
[2022-06-05 18:14] LABS: CALCIUM 9.7 mg/dL (8.5-10.3); CREATININE 1.2 mg/dL (0.6-1.2); POTASSIUM 5.5 mmol/L (3.5-5.0)
== END 2022-06-05 13:49 | disposition home or self-care (01) ==
LOC: LAB.N 13:48
PROVIDERS: ATTEND Nurse Practitioner Family
DX: E87.1 Hypo-osmolality and hyponatremia (principal)
CPT/HCPCS: 36415; 80048; 83930; 83935; 84300

== ENCOUNTER 2022-06-19 12:36 | Outpatient (CLI) | payer MEDICARE ==
--- NOTE | 2022-06-19 15:07 | MRI Report ---
PROCEDURE: Lumbar Spine W/O INDICATIONS: LOW BACK PAIN TECHNIQUE: Noncontrast sagittal T1 spin echo and T2 fast echo, sagittal STIR, axial T1 and T2 fast spin echo thr ough the lumbar spine. In cases with scoliosis, additional coronal T2 fast spin echo may be performe d. COMPARISON: None. FINDINGS: Image quality: Excellent. Alignment and Curvature: Retrolisthesis of L5 on S1 measures 7 mm. The other vertebral bodies are nor nicolette aligned. Bone Marrow: Marrow is of normal overall signal. No acute vertebral body compression fractures. Spinal Cord: Conus medullaris terminates at the L1-L2 level. Visualized cord demonstrates normal si gnal and size. Paraspinous Soft Tissues: No paravertebral masses. T12-L1: Mild focal left paracentral disc protrusion which does not abut the cord. No canal stenosis or foraminal stenosis. L1-L2: Mild diffuse disc bulge with mild superimposed right paracentral disc protrusion. Epidural lipomatosis. Mild canal stenosis. Mild bilateral foraminal stenosis. L2-L3: The combination of diffuse broad-based disc bulge short pedicles, epidural lipomatosis and facet hypertrophy. Results in severe canal stenosis. Normal in appearance. There is mild to moderate bilateral foraminal narrowing. L3-L4: The combination of disc bulge, facet hypertrophy, short pedicles, and epidural lipomatosis re sults in severe canal stenosis. Mild to moderate bilateral foraminal narrowing. L4-L5: There is diffuse disc bulge and shallow associated inferior disc extrusion. There are short pedicles. There is epidural lipomatosis. There is severe canal stenosis. There is mild to moderate bi lateral foraminal narrowing. L5-S1: Retrolisthesis of L5 on S1. There is diffuse disc bulge. There is epidural lipomatosis. There is moderate canal stenosis. There is moderate bilateral foraminal narrowing with mild flattening defo rmity on the exiting bilateral L5 nerve roots. IMPRESSION: 1. The combination of short pedicles and epidural lipomatosis contribute to significant canal stenosi s at multiple levels. 2. Multilevel facet arthropathy. 3. Canal stenosis is mild at L1-L2, severe at L2-L3, severe at L3-L4, severe at L4-L5, and moderate a t L5-S1. 4. Multilevel foraminal narrowing as described above. Reviewed by: Jimi Milan MD on 06/19/2022 3:05 PM PDT Approved by: Jimi Milan MD on 06/19/2022 3:05 PM PDT Station ID: [id number]
== END 2022-06-19 12:37 | disposition home or self-care (01) ==
LOC: DI 12:36
PROVIDERS: ATTEND Family Medicine
DX: M47.816 Spondylosis without myelopathy or radiculopathy, lumbar region (principal); M48.061 Spinal stenosis, lumbar region without neurogenic claudication; M48.07 Spinal stenosis, lumbosacral region; M43.17 Spondylolisthesis, lumbosacral region

== ENCOUNTER 2022-08-14 08:48 | Day surgery (SDC) | payer MEDICARE ==
[~2022-08-14 08:48] MED LIST changes: +BRIMONIDINE 0.2% OPHTH DROPS 5 ML ONE; +BSS/LIDOCAINE/EPINEPHRINE 1 ML VIAL ONE; +CYCLOPENTOLATE 1% OPHTH DROPS 2 ML ONE; +EPINEPHrine 1 MG/ML AMP ONE; +KETOROLAC 0.45% OPHTH DROPS ONE; +PHENYLEPHRINE 2.5% OPHTH 2 ML DROPS ONE; +PROPARACAINE 0.5% OPHTH DROPS 15 ML ONE; -PROPOFOL 500 MG/50 ML 500 MG/50 ML VIAL ONE; +TRIAMCIN/MOXIFLOX OPHTHALMIC 0.6 ML VIAL IO ONE; +VANCOMYCIN OPHTH (TOPICAL) 10 MG/ML SYRINGE ONE
[2022-08-14] MEDS ORDERED: LACTATED RINGERS 1,000 ML IV ONE (08:56)
--- NOTE | 2022-08-14 09:56 | ANESTHESIA ---
Pre-Anesthesia VS, & Labs - Diagnosis L cataract - Procedure L PhacoIOL Vital Signs: Temp Pulse Resp BP Pulse Ox O2 Flow Rate 36.1 C L 61 20 173/70 H 97 08/14/22 09:03 08/14/22 09:03 08/14/22 09:03 08/14/22 09:03 08/14/22 09:03 Height: 5 ft 11 in Weight (kg): 123 kg Body Mass Index: 37.8 BMI Classification: Obese - NPO >8 hours Home Medications and Allergies Citalopram [CeleXA] 40 mg PO DAILY 01/12/14 Losartan [Cozaar] 50 mg PO DAILY 01/12/14 busPIRone [Buspar] 7.5 mg PO BID 01/12/14 Atorvastatin Calcium 40 mg PO DAILY 01/10/22 Clopidogrel [Plavix] 75 mg PO DAILY 01/10/22 Metoprolol Succinate [Toprol Xl] 25 mg PO ONCE 01/10/22 Oxybutynin [Ditropan] 5 mg PO BID 01/10/22 allopurinoL [Allopurinol] 300 mg PO DAILY 01/10/22 Allergies/Adverse Reactions: Allergies Allergy/AdvReac Type Severity Reaction Status Date / Time No Known Drug Allergies Allergy Verified 10/27/18 17:20 Anes History & Medical History - Anesthetic History Anesthesia Complications: reports: No previous complications Family history of Anesthesia Complications: Denies Family history of Malignant Hyperthermia: Denies - Medical History Cardiovascular: reports: Hypertension, High cholesterol, 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) Pulmonary: reports: Other Gastrointestinal: reports: None Urinary: reports: Benign prostate hypertrophy Neuro: reports: CVA Musculoskeletal: reports: Gout, Chronic back pain, Other (R sided weakness post CVA) Endocrine/Autoimmune: reports: None Skin: reports: None Smoking Status: Never smoker - Surgical History General: reports: Other (hernia repair) Cardiothoracic: reports: Vascular surgery, Other (R CEA) Orthopedic: reports: Arthroscopic surgery Exam General: Alert, Oriented x3, Cooperative Mouth Openin Fingerbreadth Neck Mobility: Normal Mallampati classification: III Thyromental Distance: 4-6 cm Respiratory: Lungs clear Cardiovascular: Regular rate Plan Anesthesia Type: MAC Consent for Procedure(s) Verified and Reviewed: Yes Code Status: Attempt Resuscitation ASA classification: 3-Severe systemic disease Is this case an emergency?: No
[2022-08-14] MEDS ORDERED: MIDAZOLAM 2 MG/2 ML VIAL ONE (10:30)
[2022-08-14] MEDS ORDERED: EPINEPHrine 1 MG/ML AMP IR ONE (10:48)
[2022-08-14] MEDS ORDERED: BRIMONIDINE 0.2% OPHTH DROPS 5 ML OPTH ONE (10:48)
[2022-08-14] MEDS ORDERED: TIMOLOL 0.5% OPHTH DROPS OPTH ONE (10:48)
[2022-08-14] MEDS ORDERED: VANCOMYCIN OPHTH (TOPICAL) 10 MG/ML SYRINGE TOP ONE (10:49)
[2022-08-14] MEDS ORDERED: BSS/LIDOCAINE/EPINEPHRINE 1 ML SYRINGE IO ONE (10:49)
[2022-08-14] MEDS ORDERED: TRIAMCIN/MOXIFLOX OPHTHALMIC 0.6 ML VIAL IO ONE (10:49)
[2022-08-14] MEDS ORDERED: PROPARACAINE 0.5% OPHTH DROPS 15 ML EACHEYE ONE (10:49)
[2022-08-14] MEDS ORDERED: fentaNYL 100 MCG/2 ML VIAL ONE (10:56)
[2022-08-14] MEDS ORDERED: LACTATED RINGERS 800 ML IV ONE (11:02)
--- NOTE | 2022-08-14 11:15 | OPERATIVE REPORT ---
Operative Report - Other Other Information/Narrative: Date of Surgery: 08/14/22 Preop Dx: Visually significant cataract left eye. This was the first cataract surgery. Postop Dx: Same Procedure: Phacoemulsification with posterior chamber intraocular lens implant left eye Surgeon: Dr. Pancho Olsen Anesthesia: Monitored anesthesia care Complications: None Operative Indications: This is a 71-year-old M with progressive vision loss in the left eye due to 3+ nuclear sclerotic cataract. Best corrected visual acuity was 20/30 with glare to hand motion vision in the left eye. Indications for surgery were: - Overall decrease in vision - Difficulty seeing words on a computer screen - Difficulty reading - Difficulty seeing words, closed captions, or game scores on TV - Difficulty seeing street signs - Difficulty driving in low light or at night - Difficulty driving at night because of headlights from other vehicles - Difficulty with glare or bright lights in any situation The patient was consented at length concerning the risks and benefits of cataract surgery after which the patient expressed a desire to proceed with surgery. Operative Procedure: The patient was taken into OR#3 and placed under monitored anesthesia care. A surgical time-out was conducted confirming correct patient, correct procedure, and correct surgical site. The patient was given topical anesthesia and then prepped and draped in the usual sterile fashion. The eye was entered at the 6 and 3 oclock positions. Intracameral Shugarcaine was injected into the anterior chamber followed by a dispersive viscoelastic. A continuous-tear curvilinear capsulorhexis was performed. The nucleus was hydrodissected and phacoemulsified. The cortex was evacuated using automated infusion and aspiration. A cohesive viscoelastic was injected into the capsular bag and a 19.5 diopter intraocular lens was inserted into the bag. Infusion and aspiration were used to evacuate the viscoelastic materials from the eye. The wounds were hydrated and the eye inflated to physiologic pressure using balanced salt solution. Approximately 0.25ml of a mixture of triamcinolone and moxifloxacin was injected trans-sclerally into the vitreous in the inferotemporal quadrant using a 30 gauge cannula. An additional 0.55ml of a mixture of triamcinolone and moxifloxacin was injected subconjunctivally in the superior quadrant for infection and inflammation prophylaxis. Wound integrity was checked with Weck-Марина sponges. The patient was taken from the operating room in good condition and given post-op instructions.
[2022-08-14 11:23] VITALS: BP 144/73
--- NOTE | 2022-08-14 11:46 | ANESTHESIA POST OP EVALUATION ---
Anesthesia Post Eval - Post Anesthesia Eval Vitals: Last Vital Signs Temp 36.4 C L 08/14/22 11:22 Pulse 61 08/14/22 11:22 Resp 18 08/14/22 11:22 BP 144/73 H 08/14/22 11:22 Pulse Ox 94 08/14/22 11:22 O2 Flow Rate CV Function Including HR & BP: Stable Pain Control: Satisfactory Nausea & Vomiting: Negative Mental Status: Baseline Respiratory Status: Airway Patent Hydration Status: Satisfactory Anesthesia Complications: None
== END 2022-08-14 08:49 | disposition home or self-care (01) ==
LOC: SDS 08:48
PROVIDERS: ATTEND Ophthalmology
DX: H25.12 Age-related nuclear cataract, left eye (principal); I10 Essential (primary) hypertension; E66.9 Obesity, unspecified; Z68.37 Body mass index [BMI] 37.0-37.9, adult
CPT/HCPCS: 66984; A9270; J3490; J7120

== ENCOUNTER 2022-09-22 08:37 | Outpatient (CLI) | payer MEDICARE ==
[2022-09-22 12:58] LABS: ALBUMIN 3.7 g/dL (3.2-5.5); ALBUMIN/GLOBULIN RATIO 1.1 (1.0-2.2); ALKALINE PHOSPHATASE 53 IU/L (42-121); ALT ALANINE AMINOTRANSFERASE 28 IU/L (10-60); AST ASPARTATE AMINOTRANSFERASE 31 IU/L (10-42); BILIRUBIN,TOTAL 1.2 mg/dL (0.2-1.0); BUN - BLOOD UREA NITROGEN 32 mg/dL (6-20); CALCIUM 9.7 mg/dL (8.5-10.3); CARBON DIOXIDE - CO2 25 mmol/L (21-32); CHLORIDE 99 mmol/L (101-111); CHOL/HDL RATIO 3.3 (<5.0); CHOLESTEROL 113 mg/dL; CREATININE 1.6 mg/dL (0.6-1.2); GFR - MDRD 43 (>89); GLUCOSE 117 mg/dL (70-100); HDL CHOLESTEROL 34 mg/dL; LDL CHOLESTEROL,CALCULATED 53 mg/dL; LDL/HDL RATIO 1.6 (<3.6); POTASSIUM 4.9 mmol/L (3.5-5.0); SODIUM 134 mmol/L (135-145); TOTAL PROTEIN 7.2 g/dL (6.7-8.2); TRIGLYCERIDES 131 mg/dL; URIC ACID 4.2 mg/dL (2.6-7.2); VLDL CHOLESTEROL 26 mg/dL
[2022-09-22 13:04] LABS: ESTIMATED AVERAGE GLUCOSE 111 mg/dL (70-100); HEMOGLOBIN A1c% 5.5 % (4.27-6.07)
[2022-09-22 13:08] LABS: THYROID STIMULATING HORMONE 5.68 uIU/mL (0.34-5.60)
[2022-09-22 13:56] LABS: FREE T4 (FREE THYROXINE) 0.69 ng/dL (0.58-1.64)
== END 2022-09-22 08:38 | disposition home or self-care (01) ==
LOC: LAB.N 08:37
PROVIDERS: ATTEND Nurse Practitioner Family
DX: I10 Essential (primary) hypertension (principal); E87.5 Hyperkalemia; E78.5 Hyperlipidemia, unspecified; E66.01 Morbid (severe) obesity due to excess calories; M10.9 Gout, unspecified; Z79.899 Other long term (current) drug therapy; Z91.89 Other specified personal risk factors, not elsewhere classified
CPT/HCPCS: 36415; 80053; 80061; 83036; 83721; 84439; 84443; 84550

== ENCOUNTER 2022-10-23 09:39 | Day surgery (SDC) | payer MEDICARE ==
[~2022-10-23 09:39] MED LIST changes: -BRIMONIDINE 0.2% OPHTH DROPS 5 ML ONE; -BSS/LIDOCAINE/EPINEPHRINE 1 ML VIAL ONE; -EPINEPHrine 1 MG/ML AMP ONE; -TRIAMCIN/MOXIFLOX OPHTHALMIC 0.6 ML VIAL IO ONE; -VANCOMYCIN OPHTH (TOPICAL) 10 MG/ML SYRINGE ONE
[2022-10-23] MEDS ORDERED: LACTATED RINGERS 1,000 ML IV ONE (10:02)
[2022-10-23] MEDS ORDERED: MIDAZOLAM 2 MG/2 ML VIAL ONE (11:51)
[2022-10-23] MEDS ORDERED: EPINEPHrine 1 MG/ML AMP ONE (11:54)
[2022-10-23] MEDS ORDERED: BRIMONIDINE 0.2% OPHTH DROPS 5 ML ONE (11:54)
[2022-10-23] MEDS ORDERED: TIMOLOL 0.5% OPHTH DROPS ONE (11:54)
[2022-10-23] MEDS ORDERED: TRIAMCIN/MOXIFLOX OPHTHALMIC 0.6 ML VIAL IO ONE ×2 (11:54→12:14)
[2022-10-23] MEDS ORDERED: BSS/LIDOCAINE/EPINEPHRINE 1 ML VIAL ONE (11:54)
[2022-10-23] MEDS ORDERED: VANCOMYCIN OPHTH (TOPICAL) 10 MG/ML SYRINGE ONE (11:54)
--- NOTE | 2022-10-23 12:09 | ANESTHESIA ---
Pre-Anesthesia VS, & Labs - Diagnosis R nuclear cataract - Procedure R extraction cataract w/IOL Vital Signs: Temp Pulse Resp BP Pulse Ox O2 Flow Rate 36.5 C 80 10 L 129/81 H 96 10/23/22 10:03 10/23/22 10:03 10/23/22 10:03 10/23/22 10:03 10/23/22 10:03 Height: 5 ft 10 in Weight (kg): 121.5 kg Body Mass Index: 38.4 BMI Classification: Obese - NPO >8 hours Home Medications and Allergies Citalopram [CeleXA] 40 mg PO DAILY 01/12/14 Losartan [Cozaar] 50 mg PO DAILY 01/12/14 busPIRone [Buspar] 7.5 mg PO BID 01/12/14 Atorvastatin Calcium 40 mg PO DAILY 01/10/22 Clopidogrel [Plavix] 75 mg PO DAILY 01/10/22 Metoprolol Succinate [Toprol Xl] 25 mg PO ONCE 01/10/22 Oxybutynin [Ditropan] 5 mg PO BID 01/10/22 allopurinoL [Allopurinol] 300 mg PO DAILY 01/10/22 Allergies/Adverse Reactions: Allergies Allergy/AdvReac Type Severity Reaction Status Date / Time No Known Drug Allergies Allergy Verified 10/27/18 17:20 Anes History & Medical History - Anesthetic History Anesthesia Complications: reports: No previous complications Family history of Anesthesia Complications: Denies Family history of Malignant Hyperthermia: Denies - Medical History Cardiovascular: reports: Hypertension, High cholesterol, Other Pulmonary: reports: Other Gastrointestinal: reports: None Urinary: reports: Benign prostate hypertrophy Neuro: reports: CVA Musculoskeletal: reports: Gout, Chronic back pain, Other Endocrine/Autoimmune: reports: None Skin: reports: None Smoking Status: Never smoker - Surgical History General: reports: Other Eyes Ears Nose Throat (EENT): reports: Cataracts Cardiothoracic: reports: Vascular surgery, Other Orthopedic: reports: Arthroscopic surgery Exam General: Alert, Oriented x3, Cooperative Mouth Openin Fingerbreadth Neck Mobility: Normal Mallampati classification: II Respiratory: Lungs clear, Normal breath sounds Cardiovascular: Regular rate Plan Anesthesia Type: MAC Consent for Procedure(s) Verified and Reviewed: Yes Code Status: Attempt Resuscitation ASA classification: 3-Severe systemic disease Is this case an emergency?: No
[2022-10-23] MEDS ORDERED: BRIMONIDINE 0.2% OPHTH DROPS 5 ML OPTH ONE (12:11)
[2022-10-23] MEDS ORDERED: EPINEPHrine 1 MG/ML AMP IR ONE (12:12)
[2022-10-23] MEDS ORDERED: TIMOLOL 0.5% OPHTH DROPS OPTH ONE (12:12)
[2022-10-23] MEDS ORDERED: PROPARACAINE 0.5% OPHTH DROPS 15 ML EACHEYE ONE (12:14)
[2022-10-23] MEDS ORDERED: VANCOMYCIN OPHTH (TOPICAL) 10 MG/ML SYRINGE TOP ONE (12:14)
[2022-10-23] MEDS ORDERED: BSS/LIDOCAINE/EPINEPHRINE 1 ML SYRINGE IO ONE (12:14)
[2022-10-23] MEDS ORDERED: fentaNYL 100 MCG/2 ML VIAL ONE (12:17)
[2022-10-23] MEDS ORDERED: LACTATED RINGERS 800 ML IV ONE (12:29)
--- NOTE | 2022-10-23 12:37 | OPERATIVE REPORT ---
Operative Report - Other Other Information/Narrative: Date of Surgery: 10/23/22 Preop Dx: Visually significant cataract right eye. Cataract surgery was performed in the left eye on . Postop Dx: Same Procedure: Phacoemulsification with posterior chamber intraocular lens implant right eye Surgeon: Dr. Pancho Olsen Anesthesia: Monitored anesthesia care Complications: None Operative Indications: This is a 71-year-old M with progressive vision loss in the right eye due to 3+ nuclear sclerotic cataract. Best corrected visual acuity was 20/30 with glare to light perception vision in the right eye. Indications for surgery were: - Overall decrease in vision - Difficulty seeing words on a computer screen - Difficulty reading - Difficulty seeing words, closed captions, or game scores on TV - Difficulty seeing street signs - Difficulty with glare or bright lights in any situation The patient was consented at length concerning the risks and benefits of cataract surgery after which the patient expressed a desire to proceed with surgery. Operative Procedure: The patient was taken into OR#3 and placed under monitored anesthesia care. A surgical time-out was conducted confirming correct patient, correct procedure, and correct surgical site. The patient was given topical anesthesia and then prepped and draped in the usual sterile fashion. The eye was entered at the 6 and 3 oclock positions. Intracameral Shugarcaine was injected into the anterior chamber followed by a dispersive viscoelastic. A continuous-tear curvilinear capsulorhexis was performed. The nucleus was hydrodissected and phacoemulsified. The cortex was evacuated using automated infusion and aspiration. A cohesive viscoelastic was injected into the capsular bag and a 20.0 diopter intraocular lens was inserted into the bag. Infusion and aspiration were used to evacuate the viscoelastic materials from the eye. The wounds were hydrated and the eye inflated to physiologic pressure using balanced salt solution. Approximately 0.25ml of a mixture of triamcinolone and moxifloxacin was injected trans-sclerally into the vitreous in the inferotemporal quadrant using a 30 gauge cannula. An additional 0.55ml of a mixture of triamcinolone and moxifloxacin was injected subconjunctivally in the superior quadrant for infection and inflammation prophylaxis. Wound integrity was checked with Weck-Марина sponges. The patient was taken from the operating room in good condition and given post-op instructions.
[2022-10-23 13:11] VITALS: BP 137/70
--- NOTE | 2022-10-23 13:42 | ANESTHESIA POST OP EVALUATION ---
Anesthesia Post Eval - Post Anesthesia Eval Vitals: Last Vital Signs Temp 36.5 C 10/23/22 12:45 Pulse 80 10/23/22 12:45 Resp 16 10/23/22 12:45 BP 137/70 H 10/23/22 12:45 Pulse Ox 98 10/23/22 12:45 O2 Flow Rate CV Function Including HR & BP: Stable Pain Control: Satisfactory Nausea & Vomiting: Negative Mental Status: Baseline Respiratory Status: Airway Patent Hydration Status: Satisfactory Anesthesia Complications: None
== END 2022-10-23 09:40 | disposition home or self-care (01) ==
LOC: SDS 09:39
PROVIDERS: ATTEND Ophthalmology
DX: H25.11 Age-related nuclear cataract, right eye (principal); Z98.42 Cataract extraction status, left eye; E66.9 Obesity, unspecified; Z68.38 Body mass index [BMI] 38.0-38.9, adult; N40.0 Benign prostatic hyperplasia without lower urinary tract symptoms; I25.2 Old myocardial infarction; Z79.02 Long term (current) use of antithrombotics/antiplatelets
CPT/HCPCS: 66984; A9270; J3490; J7120

== ENCOUNTER 2022-12-29 09:44 | Outpatient (CLI) | payer MEDICARE ==
[2022-12-29 12:42] LABS: ALBUMIN 3.6 g/dL (3.2-5.5); ALBUMIN/GLOBULIN RATIO 0.9 (1.0-2.2); BILIRUBIN,TOTAL 2.4 mg/dL (0.2-1.0); CALCIUM 9.8 mg/dL (8.5-10.3); CREATININE 1.3 mg/dL (0.6-1.2); POTASSIUM 5.5 mmol/L (3.5-5.0); TOTAL PROTEIN 7.5 g/dL (6.7-8.2)
== END 2022-12-29 09:45 | disposition home or self-care (01) ==
LOC: LAB.N 09:44
PROVIDERS: ATTEND Nurse Practitioner Family
DX: I12.9 Hypertensive chronic kidney disease with stage 1 through stage 4 chronic kidney disease, or unspecified chronic kidney disease (principal)
CPT/HCPCS: 36415; 80053; 85025

== ENCOUNTER 2023-07-23 11:22 | Outpatient (CLI) | payer MEDICARE | END 2023-07-23 11:23 | disposition critical access hospital (66) | LOC: EMS 11:22 | DX: R07.81 Pleurodynia (principal); R07.89 Other chest pain; M25.572 Pain in left ankle and joints of left foot; M25.571 Pain in right ankle and joints of right foot; R20.2 Paresthesia of skin; W01.0XXA Fall on same level from slipping, tripping and stumbling without subsequent striking against object, initial encounter; Y92.009 Unspecified place in unspecified non-institutional (private) residence as the place of occurrence of the external cause | CPT/HCPCS: A0425; A0429 ==

== ENCOUNTER 2023-07-23 11:46 | Emergency (ER) | payer MEDICARE ==
--- NOTE | 2023-07-23 12:17 | ED Physician Documentation ---
History of Present Illness - Stated complaint Stated Complaint: WEAKNESS - Chief complaint Chief Complaint: General - History obtained from History obtained from: Patient, Family - Additonal information Additional information: Patient is a 72-year-old male presenting for evaluation of generalized weakness after a fall 3 to 4 weeks ago. Patient states that he fell at home while getting out of bed due to feeling lightheaded. He is unsure if he hit his head and did not have LOC. Since that time he has not been able to get off the ground and has been scooting [place] [facility] [place]. His girlfriend has been taking care of him including giving him sponge baths and helping him with toileting on the ground. She reports that when he needs to have a bowel movement she places a towel underneath him and then cleans him up afterwards. They did not think to call EMS for help in getting him up. Patient thought he would get better but his weakness has persisted and he has not been able to get off the ground. He reports pain to the right knee and both ankles as well as the right side of his ribs. He is on Plavix. Denies chest pain otherwise, shortness of air, abdominal symptoms, vomiting or diarrhea. Review of Systems Constitutional: denies: Fever Cardiac: denies: Chest pain / pressure Respiratory: denies: Dyspnea GI: denies: Abdominal Pain Musculoskeletal: reports: Extremity pain Neurologic: reports: Generalized weakness. denies: Syncope PD PAST MEDICAL HISTORY - Past Medical History Cardiovascular: Hypertension, High cholesterol, Other Respiratory: Other Neuro: CVA Endocrine/Autoimmune: None GI: None : Benign prostate hypertrophy HEENT: None Psych: Depression, Anxiety Musculoskeletal: Gout, Chronic back pain, Other Derm: None - Past Surgical History Past Surgical History: Yes General: Other Ortho: Arthroscopic surgery Cardiovascular: Vascular surgery, Other HEENT: Cataracts - Present Medications Home Medications: Ambulatory Orders Medication Instructions Recorded Confirmed Citalopram [CeleXA] 40 mg PO DAILY 01/12/14 07/23/23 Losartan [Cozaar] 50 mg PO DAILY 01/12/14 07/23/23 busPIRone [Buspar] 7.5 mg PO BID 01/12/14 07/23/23 Atorvastatin Calcium 40 mg PO DAILY 01/10/22 07/23/23 Clopidogrel [Plavix] 75 mg PO DAILY 01/10/22 07/23/23 Metoprolol Succinate [Toprol Xl] 25 mg PO ONCE 01/10/22 07/23/23 Oxybutynin [Ditropan] 5 mg PO BID 01/10/22 07/23/23 HYDROcod/ACETAM 5/325 [[place] 5/325] 1 ea PO Q6H PRN #10 tablet 07/23/23 - Allergies Allergies/Adverse Reactions: Allergies Allergy/AdvReac Type Severity Reaction Status Date / Time No Known Drug Allergies Allergy Verified 07/23/23 11:56 - Social History Does the pt smoke?: No Smoking Status: Never smoker Does the pt drink ETOH?: Yes Does the pt have substance abuse?: No - Immunizations Immunizations are current?: Yes - POLST Patient has POLST: No PD ED PE NORMAL - General General: Alert and oriented X 3, No acute distress, Well developed/nourished - HEENT HEENT: Atraumatic, PERRL, EOMI, Moist mucous membranes, Pharynx benign - Neck Neck: Supple, no meningeal sign, No bony TTP, C-Spine cleared by NEXUS criteria - Cardiac Cardiac: RRR, No murmur - Respiratory Respiratory: No respiratory distress, Clear bilaterally - Abdomen Abdomen: Normal bowel sounds, Soft, Non tender, Non distended - Derm Derm: Warm and dry - Extremities Extremities: No deformity, Normal ROM s pain, Other (Reports pain to right knee and both ankles but allows for good range of motion) - Neuro Neuro: Alert and oriented X 3, 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 Relevant findings are: Rate 57, sinus bradycardia, no STEMI, motion artifact in several leads but no signs of ST elevation or depression Rate: Rate (enter#) (57) Rhythm: NSR Ischemia: No: ST elevation c/w ischemia - Labs Labs: Laboratory Tests 07/23/23 07/23/23 07/23/23 12:19 13:15 13:23 WBC 10.1 RBC 4.53 L Hgb 15.0 Hct 45.8 MCV 101.1 H MCH 33.1 H MCHC 32.8 RDW 13.5 Plt Count 293 MPV 10.3 Neut # (Auto) 7.0 H Lymph # (Auto) 1.5 Nuckolls # (Auto) 1.2 H Eos # (Auto) 0.3 Baso # (Auto) 0.1 Absolute Nucleated RBC 0.00 Nucleated RBC % 0.0 Sodium 134 L Potassium 4.9 H Chloride 99 L Carbon Dioxide 29 Anion Gap 6.0 BUN 17 Creatinine 0.9 Estimated GFR (MDRD) 83 L Glucose 110 H Calcium 9.8 Total Bilirubin 1.1 H AST 27 ALT 22 Alkaline Phosphatase 85 Total Creatine Kinase 47 Total Protein 7.5 Albumin 4.0 Globulin 3.5 Albumin/Globulin Ratio 1.1 Lipase 24 Urine Color DARK YELLOW Urine Clarity CLEAR Urine pH 6.0 Ur Specific [place] 1.015 Urine Protein NEGATIVE Urine Glucose (UA) NEGATIVE Urine Ketones NEGATIVE Urine Occult Blood NEGATIVE Urine Nitrite NEGATIVE Urine Bilirubin NEGATIVE Urine Urobilinogen 1 (NORMAL) Ur Leukocyte Esterase NEGATIVE Ur Microscopic Review NOT INDICATED Urine Culture Comments NOT INDICATED PD Medical Decision Making - ED course Complexity details: reviewed results, re-evaluated patient, d/w patient ED course: Patient is a 72-year-old male presenting for evaluation after a fall 3 weeks ago and reports he has been laying on the ground since then. His girlfriend has been assisting him with toileting, bathing and eating. He has no outward signs of injury. He is on Plavix and is unclear whether he hit his head. A CT head was obtained which I reviewed and is negative for intracranial hemorrhage. EKG shows a sinus rhythm and is nonischemic. CBC, chemistry, CK and urine analysis were obtained and reviewed without significant findings. A chest x-ray, right knee x-ray and bilateral ankle x-rays were also reviewed without signs of fracture or pneumothorax. Patient was given IV fluids. His vital signs have been stable here. He was given a dose of oral pain medicine due to feeling stiff and sore from laying on the ground for several weeks. Patient was able to get up with a walker and take some steps and ambulate. He is concerned about getting home as he is always had difficulty getting in and out of their low vehicle. I have placed a social work consult. Patient states that he was supposed to be getting physical therapy prior to the fall through his PCP And he is interested in continuing this. Departure - Departure Disposition: 01 Home, Self Care Clinical Impression: Physical deconditioning, Knee pain Fall at home Qualifiers: Encounter type: initial encounter Qualified Code(s): W19.XXXA - Unspecified fall, initial encounter Condition: Good Instructions: ED Mechanical Fall Follow-Up: Monserrat Cook ARNP [Primary Care Provider] - Prescriptions: HYDROcod/ACETAM 5/325 [[place] 5/325] 1 ea PO Q6H PRN #10 tablet PRN Reason: Pain Comments: If you fall again at home and are not able to get yourself up you need to call 911 for help and not lay on the ground for weeks to months. Please call close follow-up with your primary care provider. You would benefit from physical therapy and help with your physical deconditioning. I am prescribing a short course of narcotic pain medication for you. These are potentially dangerous and addictive medications that should be used carefully. These medications may constipate you. Take an hwep-jqt-hrttaqs stool softener (docusate) twice daily with plenty of water while taking these medications. If you go 24 hours without a bowel movement, take nxmj-kct-zkdqzzf miralax, per package instructions. Do not drink or drive while taking these medications. If you received narcotic or sedating medications while in the emergency department, do not drive for 24 hours. Store this medication in a safe, secure place and out of reach of children. It is a violation of federal law to give or sell this medication to another person or to use in a manner other than prescribed. The ED will not refill narcotic prescriptions, including prescriptions lost or stolen. To dispose of unwanted medications: 1. [facility] [address] in [place] has a medication drop box. They accept prescription medications (in pill form) Thursday through Thursday 9:00 a.m. to 5:00 p.m. 2. The [facility] [employer] accepts prescription medications (in pill form only) for disposal year round. Call for more information. 3. Contact the [facility] for the next [facility] sponsored prescription drug collection event. , [id number], or [phone]; Forms: PCP List Discharge Date/Time: 07/23/23 16:37
[2023-07-23] MEDS ORDERED: SODIUM CHLORIDE 0.9% 1,000 ML IV STA (13:00)
[2023-07-23 13:16] LABS: ALBUMIN/GLOBULIN RATIO 1.1 (1.0-2.2); BILIRUBIN,TOTAL 1.1 mg/dL (0.2-1.0); CALCIUM 9.8 mg/dL (8.5-10.3); CREATININE 0.9 mg/dL (0.6-1.3); POTASSIUM 4.9 mmol/L (3.5-4.5); TOTAL PROTEIN 7.5 g/dL (6.4-8.9)
[2023-07-23 13:20] LABS: BASOPHILS # (AUTO) 0.1 10^3/uL (0.0-0.1); BASOPHILS % (AUTO) 0.7 %; EOSINOPHILS # (AUTO) 0.3 10^3/uL (0.0-0.7); EOSINOPHILS % (AUTO) 2.8 %; HCT - HEMATOCRIT 45.8 % (42.0-52.0); LYMPHOCYTES # (AUTO) 1.5 10^3/uL (1.5-3.5); LYMPHOCYTES % (AUTO) 15.1 %; MEAN CORPUSCULAR HEMOGLOBIN 33.1 pg (27.0-31.0); MEAN CORPUSCULAR HGB CONC 32.8 g/dL (32.0-36.0); MEAN CORPUSCULAR VOLUME 101.1 fL (80.0-94.0); MEAN PLATELET VOLUME 10.3 fL (7.4-11.4); MONOCYTES # (AUTO) 1.2 10^3/uL (0.0-1.0); MONOCYTES % (AUTO) 11.8 %; NEUTROPHILS % (AUTO) 69.2 %; PLT - PLATELET COUNT 293 10^3/uL (130-450); RED BLOOD COUNT 4.53 10^6/uL (4.70-6.10); RED CELL DISTRIBUTION WIDTH 13.5 % (12.0-15.0); WHITE BLOOD COUNT 10.1 x10^3/uL (4.8-10.8)
--- NOTE | 2023-07-23 13:25 | XRAY Report ---
PROCEDURE: Chest 1 View X-Ray INDICATIONS: fall TECHNIQUE: One view of the chest was acquired. COMPARISON: CT chest 02/25/2021 FINDINGS: Surgical changes and devices: None. Lungs and pleura: No pleural effusions or pneumothorax. Lungs are clear. Mediastinum: Mediastinal contours appear normal. Heart size is normal. Bones and chest wall: No suspicious bony lesions. Overlying soft tissues appear unremarkable. IMPRESSION: No acute cardiopulmonary process. Reviewed by: Sandy Kothari MD on 07/23/2023 1:24 PM PDT Approved by: Sandy Kothari MD on 07/23/2023 1:24 PM PDT Station ID: [id number]
--- NOTE | 2023-07-23 13:26 | XRAY Report ---
PROCEDURE: Ankle 3 View BILAT INDICATIONS: fall/pain TECHNIQUE: 3 views of the ankle were acquired. COMPARISON: None. FINDINGS: Bones: No fractures or dislocations. Ankle mortise is normally aligned. No suspicious bony lesions . Soft tissues: No tibiotalar joint effusion. Achilles tendon appears normal. IMPRESSION: No visualized acute fracture or dislocation. However, occult injury cannot be excluded. Recommend bill rt interval imaging follow-up in 7-10 days as clinically indicated for additional evaluation. Reviewed by: Sandy Kothari MD on 07/23/2023 1:24 PM PDT Approved by: Sandy Kothari MD on 07/23/2023 1:24 PM PDT Station ID: [id number]
--- NOTE | 2023-07-23 13:26 | XRAY Report ---
PROCEDURE: Knee 3 View RT INDICATIONS: fall/pain TECHNIQUE: 3 views of the right knee(s) were acquired. COMPARISON: X-ray knee 10/27/2018 FINDINGS: Bones: No fractures or dislocations. No suspicious bony lesions. Tricompartmental arthritic chau e. Soft tissues: Minimal knee joint effusion. No suspicious soft tissue calcifications or masses. IMPRESSION: No visualized acute fracture or dislocation. However, occult injury cannot be excluded. Recommend bill rt interval imaging follow-up in 7-10 days as clinically indicated for additional evaluation. Reviewed by: Sandy Kothrai MD on 07/23/2023 1:25 PM PDT Approved by: Sandy Kothari MD on 07/23/2023 1:25 PM PDT Station ID: [id number]
[2023-07-23 13:29] LABS: BILIRUBIN,URINE NEGATIVE (NEGATIVE); GLUCOSE, URINE (UA) NEGATIVE (NEGATIVE); KETONES,URINE (UA) NEGATIVE (NEGATIVE); LEUKOCYTE ESTERASE, URINE NEGATIVE (NEGATIVE); NITRITE,URINE NEGATIVE (NEGATIVE); OCCULT BLOOD,URINE NEGATIVE (NEGATIVE); PROTEIN,URINE NEGATIVE (NEGATIVE); UROBILINOGEN,URINE 1 (NORMAL) E.U./dL (NORMAL)
[2023-07-23 13:31] LABS: CLARITY,URINE CLEAR (CLEAR)
--- NOTE | 2023-07-23 14:00 | CT Report ---
PROCEDURE: HEAD WO INDICATIONS: fall/home TECHNIQUE: Noncontrast 4.5 mm thick angled axial sections acquired from the foramen magnum to the vertex. For r adiation dose reduction, the following was used: automated exposure control, adjustment of mA and/or kV according to patient size. COMPARISON: CT head 02/25/2021 FINDINGS: Image quality: Excellent. The ventricular system and cortical sulci demonstrate atrophy, consistent for patient's stated age. There are areas of hypodensity in the periventricular and subcortical white matter. There is no acut e intra or extra-axial fluid collection. No acute hemorrhage, mass lesion or midline shift. Brainst em is unremarkable. Globes are symmetrical. Sinuses are aerated. Osseous structures are intact. IMPRESSION: 1. No acute intracranial process. 2. Mild to moderate atrophy and chronic microvascular ischemic changes. Reviewed by: Sandy Kothari MD on 07/23/2023 1:58 PM PDT Approved by: Sandy Kothari MD on 07/23/2023 1:58 PM PDT Station ID: [id number]
[2023-07-23] MEDS ORDERED: HYDROcod/ACETAM 5/325 MG TABLET PO STA (14:40)
--- NOTE | 2023-07-23 15:55 | ED Physician Documentation ---
ED Addendum - Addendum Addendum: 07/23/23 15:54 Patient requested pain medication for home at the time of discharge, patient will be given a small prescription for Vicodin without seem to help him here. Patient counseled regarding signs and symptoms for which I believe and urgent re-evaluation would be necessary. Patient with good understanding of and agreement to plan and is comfortable going home at this time This document was made in part using voice recognition software. While efforts are made to proofread this document, sound alike and grammatical errors may occur. Departure - Departure Disposition: 01 Home, Self Care Clinical Impression: Physical deconditioning Fall at home Qualifiers: Encounter type: initial encounter Qualified Code(s): W19.XXXA - Unspecified fall, initial encounter Knee pain Qualifiers: Chronicity: acute Laterality: bilateral Qualified Code(s): M25.561 - Pain in right knee Condition: Good Instructions: ED Mechanical Fall Follow-Up: Monserrat Cook ARNP [Primary Care Provider] - Prescriptions: HYDROcod/ACETAM 5/325 [[place] 5/325] 1 ea PO Q6H PRN #10 tablet PRN Reason: Pain Comments: If you fall again at home and are not able to get yourself up you need to call 911 for help and not lay on the ground for weeks to months. Please call close follow-up with your primary care provider. You would benefit from physical therapy and help with your physical deconditioning. I am prescribing a short course of narcotic pain medication for you. These are potentially dangerous and addictive medications that should be used carefully. These medications may constipate you. Take an dtbf-qop-gehmigy stool softener (docusate) twice daily with plenty of water while taking these medications. If you go 24 hours without a bowel movement, take rrzw-mks-nntarae miralax, per package instructions. Do not drink or drive while taking these medications. If you received narcotic or sedating medications while in the emergency department, do not drive for 24 hours. Store this medication in a safe, secure place and out of reach of children. It is a violation of federal law to give or sell this medication to another person or to use in a manner other than prescribed. The ED will not refill narcotic prescriptions, including prescriptions lost or stolen. To dispose of unwanted medications: 1. [facility] at [address] in [place] has a medication drop box. They accept prescription medications (in pill form) Thursday through Thursday 9:00 a.m. to 5:00 p.m. 2. The [facility] accepts prescription medications (in pill form only) for disposal year round. Call for more information. 3. Contact the [facility] for the next [facility] sponsored prescription drug collection event. , [phone], or [phone]; Forms: PCP List
[2023-07-23 16:45] VITALS: BP 145/65; O2SAT 98
== END 2023-07-23 16:37 | disposition home or self-care (01) ==
LOC: EDBD → EDUNIT# → ED 11:46
DX: R53.81 Other malaise (principal); W18.30XA Fall on same level, unspecified, initial encounter; Y92.009 Unspecified place in unspecified non-institutional (private) residence as the place of occurrence of the external cause; I10 Essential (primary) hypertension; Z79.01 Long term (current) use of anticoagulants
CPT/HCPCS: 36415; 70450; 71045; 73562; 73610; 80053; 81003; 82550; 83690; 85025; 93005; 99284; A9270; 81001; 87086

== ENCOUNTER 2023-08-07 11:15 | Outpatient (CLI) | payer MEDICARE ==
[2023-08-07 17:57] LABS: BASOPHILS # (AUTO) 0.1 10^3/uL (0.0-0.1); BASOPHILS % (AUTO) 0.8 %; EOSINOPHILS # (AUTO) 0.2 10^3/uL (0.0-0.7); EOSINOPHILS % (AUTO) 2.5 %; HCT - HEMATOCRIT 46.9 % (42.0-52.0); HGB - HEMOGLOBIN 15.4 g/dL (14.0-18.0); LYMPHOCYTES % (AUTO) 21.3 %; MEAN CORPUSCULAR HEMOGLOBIN 33.1 pg (27.0-31.0); MEAN CORPUSCULAR HGB CONC 32.8 g/dL (32.0-36.0); MEAN CORPUSCULAR VOLUME 100.9 fL (80.0-94.0); MEAN PLATELET VOLUME 10.7 fL (7.4-11.4); MONOCYTES % (AUTO) 10.2 %; PLT - PLATELET COUNT 361 10^3/uL (130-450); RED BLOOD COUNT 4.65 10^6/uL (4.70-6.10); RED CELL DISTRIBUTION WIDTH 13.8 % (12.0-15.0); WHITE BLOOD COUNT 9.3 x10^3/uL (4.8-10.8)
[2023-08-07 18:49] LABS: CALCIUM 8.9 mg/dL (8.5-10.3); CREATININE 1.2 mg/dL (0.6-1.2); POTASSIUM 4.7 mmol/L (3.5-5.0)
[2023-08-07 19:03] LABS: THYROID STIMULATING HORMONE 3.3 uIU/mL (0.34-5.60)
== END 2023-08-07 11:16 | disposition home or self-care (01) ==
LOC: LAB.N 11:15
PROVIDERS: ATTEND Nurse Practitioner Family
DX: I12.9 Hypertensive chronic kidney disease with stage 1 through stage 4 chronic kidney disease, or unspecified chronic kidney disease (principal); E87.5 Hyperkalemia; D75.89 Other specified diseases of blood and blood-forming organs; Z79.899 Other long term (current) drug therapy; E03.8 Other specified hypothyroidism
CPT/HCPCS: 36415; 80048; 82607; 82746; 84443; 85025

== ENCOUNTER 2023-11-06 12:01 | Outpatient (CLI) | payer MEDICARE ==
[2023-11-06 18:11] LABS: BASOPHILS # (AUTO) 0.1 10^3/uL (0.0-0.1); BASOPHILS % (AUTO) 0.7 %; EOSINOPHILS # (AUTO) 0.2 10^3/uL (0.0-0.7); EOSINOPHILS % (AUTO) 1.2 %; HCT - HEMATOCRIT 52.6 % (42.0-52.0); HGB - HEMOGLOBIN 17.4 g/dL (14.0-18.0); LYMPHOCYTES # (AUTO) 2.5 10^3/uL (1.5-3.5); MEAN CORPUSCULAR HEMOGLOBIN 33.5 pg (27.0-31.0); MEAN CORPUSCULAR HGB CONC 33.1 g/dL (32.0-36.0); MEAN CORPUSCULAR VOLUME 101.2 fL (80.0-94.0); MEAN PLATELET VOLUME 11.2 fL (7.4-11.4); MONOCYTES # (AUTO) 1.3 10^3/uL (0.0-1.0); MONOCYTES % (AUTO) 8.1 %; NEUTROPHILS # (AUTO) 12.2 10^3/uL (1.5-6.6); PLT - PLATELET COUNT 381 10^3/uL (130-450); WHITE BLOOD COUNT 16.5 x10^3/uL (4.8-10.8)
[2023-11-06 18:45] LABS: ALBUMIN/GLOBULIN RATIO 1.1 (1.0-2.2); CALCIUM 9.6 mg/dL (8.5-10.3); POTASSIUM 4.7 mmol/L (3.5-4.5); TOTAL PROTEIN 7.5 g/dL (6.4-8.9)
== END 2023-11-06 12:02 | disposition home or self-care (01) ==
LOC: LAB.N 12:01
PROVIDERS: ATTEND Nurse Practitioner Family
DX: E87.1 Hypo-osmolality and hyponatremia (principal); M62.81 Muscle weakness (generalized); N18.31 Chronic kidney disease, stage 3a
CPT/HCPCS: 36415; 80053; 85025

== ENCOUNTER 2023-11-12 18:25 | Outpatient (CLI) | payer MEDICARE | END 2023-11-12 18:26 | disposition EMS.NT | LOC: EMS 18:25 | DX: Z03.89 Encounter for observation for other suspected diseases and conditions ruled out (principal) ==

== ENCOUNTER 2023-11-26 12:49 | Outpatient (CLI) | payer MEDICARE ==
--- NOTE | 2023-11-26 19:34 | MRI Report ---
PROCEDURE: LUMBAR SPINE WO INDICATIONS: LUMBAR SPINE PAIN TECHNIQUE: Noncontrast sagittal T1 spin echo and T2 fast echo, sagittal STIR, axial T1 and T2 fast spin echo thr ough the lumbar spine. In cases with scoliosis, additional coronal T2 fast spin echo may be performe d. COMPARISON: 06/19/2022. FINDINGS: Image quality: Excellent. Alignment and Curvature: There is normal bony alignment. Bone Marrow: Marrow is of normal overall signal. No acute vertebral body compression fractures. Spinal Cord: Conus medullaris terminates at the L1 level. Visualized cord demonstrates normal signa l and size. Paraspinous Soft Tissues: No paravertebral masses. T12-L1: Stable findings. Minimal left paracentral disc protrusion, likely an incidental finding. No canal stenosis or foraminal stenosis. L1-L2: Disc bulge. Facet hypertrophy. Minimal right paracentral disc protrusion. Epidural lipomato sis. No significant change. Mild canal stenosis. No significant foraminal stenosis. L2-L3: No significant change. Short pedicles, disc bulge, facet hypertrophy, epidural lipomatosis. Severe canal stenosis. No significant foraminal stenosis. L3-L4: No significant change. Short pedicles. Trace retrolisthesis of L3 on L4. Disc bulge. Facet a nd ligament hypertrophy. Epidural lipomatosis. Severe canal stenosis. No significant foraminal stenos is. L4-L5: No significant change. Disc bulge with associated inferior disc extrusion. Epidural lipomato sis. Facet hypertrophy. Short pedicles. Severe canal stenosis. No significant foraminal stenosis. L5-S1: No significant change. Trace retrolisthesis of L5 on S1. Epidural lipomatosis. Facet hypertr ophy. Mild to moderate canal stenosis. Mild to moderate bilateral foraminal stenosis. IMPRESSION: 1. Findings are stable. 2. Disc bulges or protrusions, short pedicles plus epidural lipomatosis, plus facet arthropathy all c ombining to result in multilevel significant canal stenosis. 3. Canal stenosis is mild at L1-L2, severe at L2-L3, L3-L4, and L4-L5, and mild to moderate at L5-S1. Reviewed by: Jimi Milan MD on 11/26/2023 7:32 PM PST Approved by: Jimi Milan MD on 11/26/2023 7:32 PM PST Station ID: [id number]
== END 2023-11-26 12:50 | disposition home or self-care (01) ==
LOC: DI 12:49
PROVIDERS: ATTEND Physician Assistant
DX: M51.26 Other intervertebral disc displacement, lumbar region (principal); M47.816 Spondylosis without myelopathy or radiculopathy, lumbar region; M51.36 Other intervertebral disc degeneration, lumbar region; M48.061 Spinal stenosis, lumbar region without neurogenic claudication; M47.817 Spondylosis without myelopathy or radiculopathy, lumbosacral region; M48.07 Spinal stenosis, lumbosacral region

== ENCOUNTER 2023-12-03 11:33 | Outpatient (CLI) | payer MEDICARE | END 2023-12-03 11:34 | disposition critical access hospital (66) | LOC: EMS 11:33 | DX: M79.662 Pain in left lower leg (principal); M79.661 Pain in right lower leg; S50.12XA Contusion of left forearm, initial encounter; W05.0XXA Fall from non-moving wheelchair, initial encounter; Y92.009 Unspecified place in unspecified non-institutional (private) residence as the place of occurrence of the external cause; R53.1 Weakness; R42 Dizziness and giddiness | CPT/HCPCS: A0425; A0429 ==

== ENCOUNTER 2023-12-03 11:55 | Emergency (ER) | payer MEDICARE ==
[2023-12-03] MEDS ORDERED: SODIUM CHLORIDE 0.9% 1,000 ML IV ONE (12:16)
--- NOTE | 2023-12-03 12:20 | ED Physician Documentation ---
History of Present Illness - Stated complaint Stated Complaint: GLF - Chief complaint Chief Complaint: Back Pain - History obtained from History obtained from: Patient, EMS, Other (significant other) - Additonal information Additional information: 77-year-old male with history of chronic back pain, obesity presents emergency department today via EMS after falling 4 days ago and inability to get back up. Patient reports prior to falling he feels like he was getting very weak and his knees ended up giving out on him. Significant other is at bedside who he lives with at home when I ask why 911 was not called after the fall, she gets quite defensive and says I do know I just that eventually he would get up. I asked him if he has been able to still take his routine medications every day and she said she still been giving him his routine meds and feeding him on the floor and if he needed to urinate she would often look up TPN and then dump it in a bucket. If he needed to have a bowel movement she would slide a towel under his bottom and then wipe him when he was all done. Currently patient denies any pain he says he is having mild shortness of breath, no focal neurological deficits, denies chest pain. He appears disheveled and is malodorous PD PAST MEDICAL HISTORY - Past Medical History Cardiovascular: Hypertension, High cholesterol, Other Respiratory: Other Neuro: CVA Endocrine/Autoimmune: None GI: None : Benign prostate hypertrophy HEENT: None Psych: Depression, Anxiety Musculoskeletal: Gout, Chronic back pain, Other Derm: None - Past Surgical History Past Surgical History: Yes General: Other Ortho: Arthroscopic surgery Cardiovascular: Vascular surgery, Other HEENT: Cataracts - Present Medications Home Medications: Ambulatory Orders Medication Instructions Recorded Confirmed Citalopram [CeleXA] 40 mg PO DAILY 01/12/14 07/23/23 Losartan [Cozaar] 50 mg PO DAILY 01/12/14 07/23/23 busPIRone [Buspar] 7.5 mg PO BID 01/12/14 12/03/23 Atorvastatin Calcium 40 mg PO DAILY 01/10/22 07/23/23 Clopidogrel [Plavix] 75 mg PO DAILY 01/10/22 07/23/23 Metoprolol Succinate [Toprol Xl] 25 mg PO ONCE 01/10/22 07/23/23 Oxybutynin [Ditropan] 5 mg PO BID 01/10/22 07/23/23 HYDROcod/ACETAM 5/325 [[place] 5/325] 1 ea PO Q6H PRN #10 tablet 07/23/23 - Allergies Allergies/Adverse Reactions: Allergies Allergy/AdvReac Type Severity Reaction Status Date / Time No Known Drug Allergies Allergy Verified 12/03/23 12:18 - Social History Does the pt smoke?: No Smoking Status: Former smoker Does the pt drink ETOH?: Yes Does the pt have substance abuse?: No - Immunizations Immunizations are current?: Yes - POLST Patient has POLST: No PD ED PE NORMAL - Vitals Vital signs reviewed: Yes - General General: Alert and oriented X 3, No acute distress, Well developed/nourished, Other (Quite disheveled and malodorous) - HEENT HEENT: Atraumatic, PERRL, EOMI - Neck Neck: No bony TTP, No adenopathy - Cardiac Cardiac: RRR, No gallop, Strong equal pulses - Respiratory Respiratory: No respiratory distress, Clear bilaterally - Abdomen Abdomen: Normal bowel sounds, Soft, Non tender, Non distended - Derm Derm: Normal color - Extremities Extremities: No deformity, No tenderness to palpate, Normal ROM s pain, No edema, Other (Generalized weakness but able to move all extremeties) - Neuro Neuro: senior adults director 2-12 intact, No motor deficit, No sensory deficit, Normal speech Eye Opening: Spontaneous Motor: Obeys Commands Verbal: Oriented GCS Score: 15 Results - Vitals Vitals: Vital Signs - 24 hr 12/03/23 12/03/23 12/03/23 12:12 13:34 13:52 Temperature 36.5 C Heart Rate 104 H 62 Respiratory 18 24 22 Rate Blood Pressure 137/66 H 167/81 H O2 Saturation 96 85 L 99 If not protocol 2 : Oxygen Flow, liters/minute 12/03/23 12/03/23 17:39 19:00 Temperature Heart Rate 64 62 Respiratory 20 20 Rate Blood Pressure 147/58 H 165/58 H O2 Saturation 96 95 If not protocol 2 : Oxygen Flow, liters/minute Oxygen O2 Source Room air - EKG (time done) 1325 EKG releavant findings:: EKG personally interpreted by author of this note. Relevant findings are: Rate: Rate (enter#) (67) Rhythm: NSR [place]: LAD Intervals: Normal [place], QRS normal QRS: Normal Ischemia: Normal ST segments Computer interpretation: Agree with computer - Labs Labs: Laboratory Tests 12/03/23 12/03/23 12/03/23 12:27 12:27 13:55 WBC 9.0 RBC 4.40 L Hgb 14.9 Hct 45.1 MCV 102.5 H MCH 33.9 H MCHC 33.0 RDW 13.0 Plt Count 323 MPV 10.3 Neut # (Auto) 5.9 Lymph # (Auto) 1.7 [place] # (Auto) 1.1 H Eos # (Auto) 0.3 Baso # (Auto) 0.1 Absolute Nucleated RBC 0.00 Nucleated RBC % 0.0 Sodium 134 L Potassium 4.7 H Chloride 101 Carbon Dioxide 27 Anion Gap 6.0 BUN 18 Creatinine 1.1 Estimated GFR (MDRD) 66 L Glucose 117 H Calcium 9.3 Magnesium 1.4 L Total Bilirubin 1.1 H AST 25 ALT 23 Alkaline Phosphatase 76 Total Creatine Kinase 61 Total Protein 6.9 Albumin 3.7 Globulin 3.2 Albumin/Globulin Ratio 1.2 Lipase 19 Urine Color Urine Clarity Urine pH Ur Specific [place] Urine Protein Urine Glucose (UA) Urine Ketones Urine Occult Blood Urine Nitrite Urine Bilirubin Urine Urobilinogen Ur Leukocyte Esterase Urine RBC Urine WBC Ur Squamous Epith Cells Urine Bacteria Ur Microscopic Review Urine Culture Comments Urine Opiates Screen NEGATIVE Ur Buprenorphine Scrn NEGATIVE Ur Oxycodone Screen NEGATIVE Urine Methadone Screen NEGATIVE Ur Barbiturates Screen NEGATIVE Ur Tricyclics Screen NEGATIVE Ur Phencyclidine Scrn NEGATIVE Ur Amphetamine Screen NEGATIVE U Methamphetamines Scrn NEGATIVE U Benzodiazepines Scrn POSITIVE H Urine Cocaine Screen NEGATIVE U Cannabinoids Screen NEGATIVE Ur Drug Screen Comment CUTOFF CONC BELOW: Ethyl Alcohol < 10.0 12/03/23 13:55 WBC RBC Hgb Hct MCV MCH MCHC RDW Plt Count MPV Neut # (Auto) Lymph # (Auto) [place] # (Auto) Eos # (Auto) Baso # (Auto) Absolute Nucleated RBC Nucleated RBC % Sodium Potassium Chloride Carbon Dioxide Anion Gap BUN Creatinine Estimated GFR (MDRD) Glucose Calcium Magnesium Total Bilirubin AST ALT Alkaline Phosphatase Total Creatine Kinase Total Protein Albumin Globulin Albumin/Globulin Ratio Lipase Urine Color DARK YELLOW Urine Clarity CLEAR Urine pH 6.0 Ur Specific [place] 1.025 Urine Protein NEGATIVE Urine Glucose (UA) NEGATIVE Urine Ketones NEGATIVE Urine Occult Blood SMALL H Urine Nitrite NEGATIVE Urine Bilirubin NEGATIVE Urine Urobilinogen 1 (NORMAL) Ur Leukocyte Esterase NEGATIVE Urine RBC 0-5 Urine WBC 0-3 Ur Squamous Epith Cells NONE SEEN Urine Bacteria Rare Ur Microscopic Review INDICATED Urine Culture Comments NOT INDICATED Urine Opiates Screen Ur Buprenorphine Scrn Ur Oxycodone Screen Urine Methadone Screen Ur Barbiturates Screen Ur Tricyclics Screen Ur Phencyclidine Scrn Ur Amphetamine Screen U Methamphetamines Scrn U Benzodiazepines Scrn Urine Cocaine Screen U Cannabinoids Screen Ur Drug Screen Comment Ethyl Alcohol PD Medical Decision Making - ED course ED course: 72-year-old male presents the emergency department via EMS for an interesting situation/story. Patient says that he originally fell 4 days ago because he was experiencing weakness, it was unwitnessed from what I can gather. His significant other is at bedside she did not call 911 until today for lift assist when asked why she waited so long she says "I do not know what it was probably against my better judgment." Patient has no unilateral weakness no focal neurological deficits making me less concerned for possible TIA versus CVA, although cannot be and indefinitely ruled out Social work consult was made for further evaluation and possible APS report concerning for unsafe living environment ECG reveals normal sinus rhythm, no ST elevation, QTc 446, left axis deviation. Head neck CT without con was ordered because the story cannot be verified patient is a very poor historian and at this time cannot rule out other dangerous mechanisms, Overall results are unremarkable no intracranial hemorrhages or abnormalities. CBC is overall unremarkable no significant leukocytosis or anemia. Chemistry reveals mild hyperkalemia, potassium 4.7 most likely due to dehydration, magnesium 1.4, kidney function appears to be within normal limits. Urinalysis does not reveal any obvious UTI, no leukocytes no WBCs no nitrates. Because the story is not quite clear ordering a urine drug screen, EtOH level, and UA And overall no significant findings, EtOH level normal, UA does not reveal any leukocytes or nitrites making me less concerned about a possible UTI, UDS is positive for benzos but patient is on multiple antianxiety medications which could have caused this, he is adamant that he does not take any antianxiety medications that are not prescribed to him. 1 L IV fluids administered as patient is probably very dehydrated and does have quite dry mucous membranes as has been on the floor for the last 4 days. Spoke with social studies department chair she is familiar with this patient and he was here in June for almost exact same reason had a ground-level fall was left on the floor for over 4 days and APS report was made at that time for concerns of patient's safety but ultimately he was discharged home as patient is decisional. I am quite concerned about a safe discharge plan, social work who is someone who saw him when he was here few months ago for same concern says that he looks s ignificantly more deconditioned than he was when he was here previously. Although he is alert and oriented x 4 he does appear to have some sort of cognitive decline. He is unable to ambulate, physical therapy was ordered per the request of social work and unfortunately they were not able to get into see him today. Hopefully physical therapy will be in tomorrow and until then patient will be boarding in the emergency department for further evaluation of safe discharge planning. Report given to Dr. Ibarra, CHRISTIE DIAZ due to change of shift.
[2023-12-03 12:37] LABS: BASOPHILS # (AUTO) 0.1 10^3/uL (0.0-0.1); BASOPHILS % (AUTO) 0.6 %; EOSINOPHILS # (AUTO) 0.3 10^3/uL (0.0-0.7); HCT - HEMATOCRIT 45.1 % (42.0-52.0); HGB - HEMOGLOBIN 14.9 g/dL (14.0-18.0); LYMPHOCYTES # (AUTO) 1.7 10^3/uL (1.5-3.5); LYMPHOCYTES % (AUTO) 18.5 %; MEAN CORPUSCULAR HEMOGLOBIN 33.9 pg (27.0-31.0); MEAN CORPUSCULAR VOLUME 102.5 fL (80.0-94.0); MEAN PLATELET VOLUME 10.3 fL (7.4-11.4); MONOCYTES # (AUTO) 1.1 10^3/uL (0.0-1.0); MONOCYTES % (AUTO) 11.6 %; NEUTROPHILS # (AUTO) 5.9 10^3/uL (1.5-6.6); NEUTROPHILS % (AUTO) 65.6 %; PLT - PLATELET COUNT 323 10^3/uL (130-450)
[2023-12-03 12:57] LABS: ALBUMIN 3.7 g/dL (3.2-5.5); ALBUMIN/GLOBULIN RATIO 1.2 (1.0-2.2); ALKALINE PHOSPHATASE 76 IU/L (42-121); ALT ALANINE AMINOTRANSFERASE 23 IU/L (10-60); AST ASPARTATE AMINOTRANSFERASE 25 IU/L (10-42); BILIRUBIN,TOTAL 1.1 mg/dL (0.2-1.0); BUN - BLOOD UREA NITROGEN 18 mg/dL (6-20); CALCIUM 9.3 mg/dL (8.5-10.3); CARBON DIOXIDE - CO2 27 mmol/L (21-32); CHLORIDE 101 mmol/L (101-111); CK- CREATINE KINASE 61 IU/L (30-223); CREATININE 1.1 mg/dL (0.6-1.3); ETOH - ETHANOL < 10.0 mg/dL; GFR - MDRD 66 (>89); GLUCOSE 117 mg/dL (74-104); LIPASE 19 U/L (11-82); MAGNESIUM 1.4 mg/dL (1.7-2.3); POTASSIUM 4.7 mmol/L (3.5-4.5); SODIUM 134 mmol/L (135-145); TOTAL PROTEIN 6.9 g/dL (6.4-8.9)
--- NOTE | 2023-12-03 13:30 | CT Report ---
PROCEDURE: Head WO INDICATIONS: GLF four days ago TECHNIQUE: Noncontrast 4.5 mm thick angled axial sections acquired from the foramen magnum to the vertex. For r adiation dose reduction, the following was used: automated exposure control, adjustment of mA and/or kV according to patient size. COMPARISON: CT head 07/23/2023. FINDINGS: Image quality: Excellent. The ventricular system and cortical sulci demonstrate atrophy, consistent for patient's stated age. There are areas of hypodensity in the periventricular and subcortical white matter. There is no acut e intra or extra-axial fluid collection. No acute hemorrhage, mass lesion or midline shift. Brainst em is unremarkable. Globes are symmetrical. Sinuses are aerated. Osseous structures are intact. IMPRESSION: 1. No acute intracranial process. 2. Moderate atrophy and chronic microvascular ischemic changes. Reviewed by: Sandy Kothari MD on 12/03/2023 1:28 PM PST Approved by: Sandy Kothari MD on 12/03/2023 1:28 PM PST Station ID: [id number]
--- NOTE | 2023-12-03 13:48 | CT Report ---
PROCEDURE: Cervical Spine WO INDICATIONS: GLF 4 days ago TECHNIQUE: Noncontrast 3 mm thick sections acquired from the skull base to the T4 level. Sagittal and coronal r eformats were then constructed. For radiation dose reduction, the following was used: automated exp osure control, adjustment of mA and/or kV according to patient size. COMPARISON: CT cervical spine 06/27/2021 FINDINGS: Image quality: Excellent. Bones: No fractures or dislocations. Visualized superior ribs are intact. Multilevel degenerative changes are present. Soft tissues: Prevertebral soft tissues are normal in thickness. No paravertebral hematomas. No ap ical pneumothoraces. IMPRESSION: Degenerative changes without visualized fracture. Reviewed by: Sandy Kothari MD on 12/03/2023 1:47 PM [facility] Approved by: Sandy Kothari MD on 12/03/2023 1:47 PM [facility] Station ID: [id number]
[2023-12-03 14:02] LABS: BILIRUBIN,URINE NEGATIVE (NEGATIVE); GLUCOSE, URINE (UA) NEGATIVE (NEGATIVE); KETONES,URINE (UA) NEGATIVE (NEGATIVE); LEUKOCYTE ESTERASE, URINE NEGATIVE (NEGATIVE); NITRITE,URINE NEGATIVE (NEGATIVE); OCCULT BLOOD,URINE SMALL (NEGATIVE); PROTEIN,URINE NEGATIVE (NEGATIVE); UROBILINOGEN,URINE 1 (NORMAL) E.U./dL (NORMAL)
[2023-12-03 14:04] LABS: CLARITY,URINE CLEAR (CLEAR)
[2023-12-03 14:17] LABS: AMPHETAMINE SCREEN,URINE NEGATIVE (NEGATIVE); BARBITURATE SCREEN,UR NEGATIVE (NEGATIVE); BENZODIAZEPINES SCREEN, URINE POSITIVE (NEGATIVE); BUPRENORPHINE SCREEN, URINE NEGATIVE (NEGATIVE); COCAINE SCREEN URINE NEGATIVE (NEGATIVE); METHADONE SCREEN, URINE NEGATIVE (NEGATIVE); METHAMPHETAMINES SCREEN, URINE NEGATIVE (NEGATIVE); OPIATE SCREEN, URINE NEGATIVE (NEGATIVE); OXYCODONE SCREEN, URINE NEGATIVE (NEGATIVE); THC CANNABINOID SCREEN, URINE NEGATIVE (NEGATIVE); TRICYCLIC ANTIDEPRESSANT,URINE NEGATIVE (NEGATIVE)
[2023-12-03 14:40] LABS: RBC,URINE 0-5 /HPF (0-5); SQUAMOUS EPITHELIAL CELL,UR NONE SEEN (<= Few); WBC,URINE 0-3 /HPF (0-3)
[2023-12-03 14:41] LABS: BACTERIA,URINE Rare /HPF (None Seen)
[2023-12-04] MEDS ORDERED: MAGNESIUM SULFATE 2 GRAM 2 GM/50 ML BAG IV ONE (01:23)
[2023-12-04] MEDS ORDERED: ONDANSETRON 4 MG/2 ML VIAL IVP PRN (07:39)
[2023-12-04] MEDS ORDERED: ACETAMINOPHEN 500 MG TABLET PO PRN (07:39)
[2023-12-04] MEDS: ENOXAPARIN 40 MG/0.4 ML SYRINGE SUBQ SCH (09:21)
[2023-12-04] MEDS: CITALOPRAM 10 MG TABLET PO SCH (09:21)
[2023-12-04] MEDS: busPIRone 5 MG TABLET PO SCH ×2 (09:21→21:05)
[2023-12-04] MEDS: METOPROLOL TARTRATE 25 MG TABLET PO SCH ×2 (09:22→21:05)
[2023-12-04] MEDS: CLOPIDOGREL 75 MG TABLET PO SCH (09:23)
[2023-12-04] MEDS: LOSARTAN 50 MG TABLET PO SCH (09:23)
--- NOTE | 2023-12-04 19:38 | ED Physician Documentation ---
ED Addendum - Addendum Addendum: Seen by PT/OT today. They are recommending SNF placement. Social work telling me that that probably will not be until next Thursday as he needs an additional evaluation. No complaints on my shift. I did attempt to examine him but he was sleeping at the time earlier in the day.
[2023-12-04] MEDS: ATORVASTATIN 40 MG TABLET PO SCH (21:05)
[2023-12-05] MEDS: PANTOPRAZOLE 40 MG TABLET PO SCH (06:49)
[2023-12-05 07:04] LABS: BILIRUBIN,URINE NEGATIVE (NEGATIVE); GLUCOSE, URINE (UA) NEGATIVE (NEGATIVE); KETONES,URINE (UA) NEGATIVE (NEGATIVE); LEUKOCYTE ESTERASE, URINE NEGATIVE (NEGATIVE); NITRITE,URINE NEGATIVE (NEGATIVE); OCCULT BLOOD,URINE SMALL (NEGATIVE); PROTEIN,URINE NEGATIVE (NEGATIVE); UROBILINOGEN,URINE 1 (NORMAL) E.U./dL (NORMAL)
[2023-12-05 07:06] LABS: CLARITY,URINE CLEAR (CLEAR)
[2023-12-05 07:21] LABS: SQUAMOUS EPITHELIAL CELL,UR RARE Squamous (<= Few); WBC,URINE 0-3 /HPF (0-3)
[2023-12-05 07:22] LABS: BACTERIA,URINE Rare /HPF (None Seen)
[2023-12-05] MEDS: ENOXAPARIN 40 MG/0.4 ML SYRINGE SUBQ SCH (09:03)
[2023-12-05] MEDS: CITALOPRAM 10 MG TABLET PO SCH (09:04)
[2023-12-05] MEDS: LOSARTAN 50 MG TABLET PO SCH (09:04)
[2023-12-05] MEDS: CLOPIDOGREL 75 MG TABLET PO SCH (09:04)
[2023-12-05] MEDS: busPIRone 5 MG TABLET PO SCH ×2 (09:05→21:04)
[2023-12-05] MEDS: METOPROLOL TARTRATE 25 MG TABLET PO SCH ×2 (09:05→21:05)
--- NOTE | 2023-12-05 17:06 | ED Physician Documentation ---
ED Addendum - Addendum Addendum: 12/05/23 17:06 No new events today. Patient has been seen and evaluated by physical therapy. Still pending placement, social work involved in patient's care.
[2023-12-05] MEDS ORDERED: NYSTATIN CREAM 15 GM TUBE TOP STA (17:16)
[2023-12-05] MEDS: ATORVASTATIN 40 MG TABLET PO SCH (21:05)
--- NOTE | 2023-12-05 21:33 | ED Physician Documentation ---
ED Addendum - Addendum Addendum: 12/05/23 21:33 No changes during my shift. Patient signed out to the oncoming emergency department physician.
[2023-12-06] MEDS: PANTOPRAZOLE 40 MG TABLET PO SCH (06:39)
[2023-12-06] MEDS: busPIRone 5 MG TABLET PO SCH ×2 (09:32→21:17)
[2023-12-06] MEDS: ENOXAPARIN 40 MG/0.4 ML SYRINGE SUBQ SCH (09:32)
[2023-12-06] MEDS: CITALOPRAM 10 MG TABLET PO SCH (09:33)
[2023-12-06] MEDS: LOSARTAN 50 MG TABLET PO SCH (09:33)
[2023-12-06] MEDS: CLOPIDOGREL 75 MG TABLET PO SCH (09:33)
[2023-12-06] MEDS: METOPROLOL TARTRATE 25 MG TABLET PO SCH ×2 (09:34→21:18)
--- NOTE | 2023-12-06 18:52 | ED Physician Documentation ---
ED Addendum - Addendum Addendum: 12/06/23 18:45 Mushtaq Aaron is a 72-year-old male who has a 4-month history of decreased ambulation and deconditioning. He has a significant other who he has been with for the past 16 years but has been taking care of him at home and working. She indicates that she was not able to get him off of the floor and eventually called the ambulance. He is now awaiting placement. No specific incidences today. He does not cooperate well with physical therapy.
[2023-12-06] MEDS: ATORVASTATIN 40 MG TABLET PO SCH (21:17)
[2023-12-07] MEDS: PANTOPRAZOLE 40 MG TABLET PO SCH (06:44)
[2023-12-07] MEDS: ENOXAPARIN 40 MG/0.4 ML SYRINGE SUBQ SCH (11:15)
[2023-12-07] MEDS: CITALOPRAM 10 MG TABLET PO SCH (11:15)
[2023-12-07] MEDS: CLOPIDOGREL 75 MG TABLET PO SCH (11:16)
[2023-12-07] MEDS: METOPROLOL TARTRATE 25 MG TABLET PO SCH ×2 (11:16→21:13)
[2023-12-07] MEDS: busPIRone 5 MG TABLET PO SCH ×2 (11:19→21:13)
[2023-12-07] MEDS: LOSARTAN 50 MG TABLET PO SCH (11:19)
[2023-12-07] MEDS: ATORVASTATIN 40 MG TABLET PO SCH (21:13)
--- NOTE | 2023-12-07 23:12 | ED Physician Documentation ---
ED Addendum - Addendum Addendum: 12/07/23 23:11 No changes during my shift. Patient signed out to the oncoming emergency department physician.
[2023-12-08] MEDS: busPIRone 5 MG TABLET PO SCH ×2 (08:55→20:45)
[2023-12-08] MEDS: LOSARTAN 50 MG TABLET PO SCH (08:55)
[2023-12-08] MEDS: CITALOPRAM 10 MG TABLET PO SCH (08:55)
[2023-12-08] MEDS: METOPROLOL TARTRATE 25 MG TABLET PO SCH ×2 (08:56→20:46)
[2023-12-08] MEDS: PANTOPRAZOLE 40 MG TABLET PO SCH (08:56)
[2023-12-08] MEDS: ENOXAPARIN 40 MG/0.4 ML SYRINGE SUBQ SCH (08:56)
[2023-12-08] MEDS: CLOPIDOGREL 75 MG TABLET PO SCH (08:56)
--- NOTE | 2023-12-08 09:41 | ED Physician Documentation ---
ED Addendum - Addendum Addendum: 12/08/23 Patient received in signout. He is boarding in the emergency department awaiting placement In a assisted facility. Patient states that he was able to sleep well overnight and has breakfast at the bedside. Spouse is also in the room with him. Denies any current needs or complaints. No events during my shift. Patient to be signed out at shift change.
--- NOTE | 2023-12-08 11:18 | ED Physician Documentation ---
ED Addendum - Addendum Addendum: 12/08/23 11:18 Add diagnoses orthostasis and hypertension
[2023-12-08] MEDS: ATORVASTATIN 40 MG TABLET PO SCH (20:46)
[2023-12-09] MEDS: PANTOPRAZOLE 40 MG TABLET PO SCH (07:29)
--- NOTE | 2023-12-09 08:09 | ED Physician Documentation ---
ED Addendum - Addendum Addendum: 12/09/23 Patient boarding in the emergency department awaiting SNF placement. No com plaints overnight. Spouse is at the bedside. He does not appear to have been out of bed yesterday. Last PT OT notes are from December 06. I did call down to rehab services and spoke with [facility]. She is unsure if the inpatient team is here yet but will pass on the message that I would like somebody to work with him today if able. Patient has been at excepted to [facility] rehab with anticipated admission date of December 11.
[2023-12-09] MEDS: ENOXAPARIN 40 MG/0.4 ML SYRINGE SUBQ SCH (10:46)
[2023-12-09] MEDS: busPIRone 5 MG TABLET PO SCH ×2 (10:47→21:01)
[2023-12-09] MEDS: LOSARTAN 50 MG TABLET PO SCH (10:48)
[2023-12-09] MEDS: METOPROLOL TARTRATE 25 MG TABLET PO SCH ×2 (10:49→21:02)
[2023-12-09] MEDS: CLOPIDOGREL 75 MG TABLET PO SCH (10:49)
[2023-12-09] MEDS: CITALOPRAM 10 MG TABLET PO SCH (10:50)
[2023-12-09] MEDS: ATORVASTATIN 40 MG TABLET PO SCH (21:02)
[2023-12-10] MEDS: PANTOPRAZOLE 40 MG TABLET PO SCH (06:25)
[2023-12-10] MEDS: ENOXAPARIN 40 MG/0.4 ML SYRINGE SUBQ SCH (09:16)
[2023-12-10] MEDS: METOPROLOL TARTRATE 25 MG TABLET PO SCH ×2 (09:17→21:06)
[2023-12-10] MEDS: LOSARTAN 50 MG TABLET PO SCH (09:17)
[2023-12-10] MEDS: CITALOPRAM 10 MG TABLET PO SCH (09:17)
[2023-12-10] MEDS: busPIRone 5 MG TABLET PO SCH ×2 (09:17→21:07)
[2023-12-10] MEDS: CLOPIDOGREL 75 MG TABLET PO SCH (09:18)
--- NOTE | 2023-12-10 12:43 | ED Physician Documentation ---
ED Addendum - Addendum Addendum: 12/10/23 12:42 No particular change in treatment this morning. The patient seems comfortable. Plan is for placement tomorrow.
[2023-12-10] MEDS: ATORVASTATIN 40 MG TABLET PO SCH (21:09)
--- NOTE | 2023-12-10 22:59 | ED Physician Documentation ---
ED Addendum - Addendum Addendum: 12/10/23 22:59 No changes during my shift. Patient signed out to the oncoming emergency department physician.
[2023-12-11] MEDS: PANTOPRAZOLE 40 MG TABLET PO SCH (06:44)
[2023-12-11 06:59] VITALS: BP 191/85; O2SAT 96
--- NOTE | 2023-12-11 07:27 | ED Physician Documentation ---
ED Addendum - Addendum Addendum: 12/11/23 07:27 Mushtaq was initially brought to the emergency department on December 03, 2023. He had fallen 4 days prior and basically stayed on the ground at home being cared for by his because he was too weak to get up. CT of the head and neck were done after initial evaluation which showed degenerative changes in the neck and moderate atrophy and chronic microvascular ischemic changes in the brain but without acute findings or trauma. Initial lab work was relatively unremarkable and urinalysis without signs of infection. He was COVID-negative. He remained in the emergency department and received physical therapy and Occupational Therapy consults. They noted him to be orthostatic and needing SNF level of care. While in the emergency department he received the following medications: Tylenol 1000 mg p.o. every 6 hours as needed pain Atorvastatin 40 mg p.o. every afternoon Buspirone 7.5 mg p.o. twice daily Citalopram 40 mg p.o. daily Clopidogrel 75 mg p.o. daily Enoxaparin 40 mg subcutaneous daily for DVT prophylaxis Losartan 50 mg p.o. daily Metoprolol 25 mg p.o. twice daily Pantoprazole 40 mg p.o. daily He was seen extensively by our social work colleagues and is being discharged to [facility]. My understanding is that PCP orders have already been faxed to their yesterday. Please fax this discharge summary to [phone]
[2023-12-11] MEDS: busPIRone 5 MG TABLET PO SCH (08:37)
[2023-12-11] MEDS: CLOPIDOGREL 75 MG TABLET PO SCH (08:38)
[2023-12-11] MEDS: CITALOPRAM 10 MG TABLET PO SCH (08:38)
[2023-12-11] MEDS: METOPROLOL TARTRATE 25 MG TABLET PO SCH (08:38)
[2023-12-11] MEDS: ENOXAPARIN 40 MG/0.4 ML SYRINGE SUBQ SCH (08:38)
[2023-12-11] MEDS: LOSARTAN 50 MG TABLET PO SCH (08:39)
== END 2023-12-11 09:55 | disposition home or self-care (01) ==
LOC: EDUNIT# → ED 11:55
DX: M54.9 Dorsalgia, unspecified (principal); W19.XXXA Unspecified fall, initial encounter; I10 Essential (primary) hypertension; E78.00 Pure hypercholesterolemia, unspecified; W18.30XA Fall on same level, unspecified, initial encounter; Z91.81 History of falling; Y92.009 Unspecified place in unspecified non-institutional (private) residence as the place of occurrence of the external cause; Z86.73 Personal history of transient ischemic attack (TIA), and cerebral infarction without residual deficits; Z87.891 Personal history of nicotine dependence; Z79.899 Other long term (current) drug therapy; Z79.02 Long term (current) use of antithrombotics/antiplatelets
CPT/HCPCS: 36415; 70450; 72125; 80053; 80306; 81001; 82550; 83690; 83735; 85025; 87635; 93005; 96361; 96365; 96372; 97110; 97162; 97166; 97530; 99284; 99285; A9270; G0480; J1650; 80320; 81003; 87086

== ENCOUNTER 2024-02-18 12:27 | Outpatient (CLI) | payer MEDICARE ==
[2024-02-18 17:37] LABS: BASOPHILS # (AUTO) 0.1 10^3/uL (0.0-0.1); BASOPHILS % (AUTO) 0.8 %; EOSINOPHILS # (AUTO) 0.4 10^3/uL (0.0-0.7); EOSINOPHILS % (AUTO) 4.1 %; HCT - HEMATOCRIT 48.9 % (42.0-52.0); HGB - HEMOGLOBIN 15.6 g/dL (14.0-18.0); LYMPHOCYTES # (AUTO) 1.9 10^3/uL (1.5-3.5); LYMPHOCYTES % (AUTO) 20.1 %; MEAN CORPUSCULAR HEMOGLOBIN 32.7 pg (27.0-31.0); MEAN CORPUSCULAR HGB CONC 31.9 g/dL (32.0-36.0); MEAN CORPUSCULAR VOLUME 102.5 fL (80.0-94.0); MEAN PLATELET VOLUME 11.1 fL (7.4-11.4); MONOCYTES # (AUTO) 0.9 10^3/uL (0.0-1.0); MONOCYTES % (AUTO) 9.1 %; NEUTROPHILS # (AUTO) 6.3 10^3/uL (1.5-6.6); NEUTROPHILS % (AUTO) 65.5 %; PLT - PLATELET COUNT 291 10^3/uL (130-450); RED BLOOD COUNT 4.77 10^6/uL (4.70-6.10); RED CELL DISTRIBUTION WIDTH 12.3 % (12.0-15.0); WHITE BLOOD COUNT 9.6 x10^3/uL (4.8-10.8)
[2024-02-18 18:02] LABS: ALBUMIN 3.8 g/dL (3.2-5.5); ALBUMIN/GLOBULIN RATIO 1.2 (1.0-2.2); ALKALINE PHOSPHATASE 65 IU/L (42-121); ALT ALANINE AMINOTRANSFERASE 18 IU/L (10-60); AST ASPARTATE AMINOTRANSFERASE 22 IU/L (10-42); BILIRUBIN,TOTAL 1.2 mg/dL (0.2-1.0); BUN - BLOOD UREA NITROGEN 24 mg/dL (6-20); CALCIUM 9.9 mg/dL (8.5-10.3); CARBON DIOXIDE - CO2 23 mmol/L (21-32); CHLORIDE 100 mmol/L (101-111); CHOL/HDL RATIO 3.1 (<5.0); CHOLESTEROL 109 mg/dL; CREATININE 0.9 mg/dL (0.6-1.3); GFR - MDRD 82 (>89); GLUCOSE 103 mg/dL (74-104); HDL CHOLESTEROL 35 mg/dL; LDL CHOLESTEROL,CALCULATED 48 mg/dL; LDL/HDL RATIO 1.4 (<3.6); POTASSIUM 4.5 mmol/L (3.5-4.5); SODIUM 132 mmol/L (135-145); TOTAL PROTEIN 6.9 g/dL (6.4-8.9); TRIGLYCERIDES 132 mg/dL (48-352); VLDL CHOLESTEROL 26 mg/dL
[2024-02-18 18:09] LABS: THYROID STIMULATING HORMONE 3.01 uIU/mL (0.34-5.60)
[2024-02-18 21:14] LABS: ESTIMATED AVERAGE GLUCOSE 108 mg/dL (70-100); HEMOGLOBIN A1c% 5.4 % (4.27-6.07)
== END 2024-02-18 12:28 | disposition home or self-care (01) ==
LOC: LAB.N 12:27
PROVIDERS: ATTEND Nurse Practitioner Family
DX: I10 Essential (primary) hypertension (principal); E78.1 Pure hyperglyceridemia; E78.5 Hyperlipidemia, unspecified; D53.9 Nutritional anemia, unspecified; E66.01 Morbid (severe) obesity due to excess calories; E03.9 Hypothyroidism, unspecified
CPT/HCPCS: 36415; 80053; 80061; 82607; 82746; 83036; 83721; 84443; 85025